=== PATIENT | female | born 1990 | race Caucasian/White ===

== ENCOUNTER → 2017-06-17 15:53 | Outpatient (CLI) | payer OTHER, SELFPAY ==
[2015-04-09 07:38] VITALS: BMI 41.8
[2015-04-10 03:10] VITALS: BP 106/76
[2015-04-12 09:00] VITALS: BP 123/71
[2017-06-17 17:21] LABS: Absolute Lymphocyte Count 1.22 X10^3/ul (0.83-4.51); Basophil# 0.01 X10^3/uL; Basophil% 0.1 % (0-1); Eosinophil# 0.11 X10^3/uL; Eosinophils% 1.2 % (0-5); Hematocrit 38.7 % (37-47); Hemoglobin 13.4 g/dl (12.0-15.0); Lymphocyte # 1.22 X10^3/ul (4.0); Lymphocyte % 13.7 % (19-41); Mean Corp Hgb Conc 34.6 g/gl (32-36); Mean Corpuscular Hgb 30.2 pg (27.0-32.0); Mean Corpuscular Volume 87.2 fL (81-99); Mean Platelet Vol. 11.1 fl (6.2-12.0); Monocyte# 0.57 X10^3/uL; Monocyte% 6.4 % (0-10); Neutrophil # 6.96 X10^3/uL (2.7-7.7); Neutrophil % 78.5 % (47-70); Platelet Count 294 K/mm3 (150-450); RBC Distribution Width CV 13.5 % (11.6-14.6); RBC Distribution Width SD 41.8 fl (35.1-43.9); Red Blood Count 4.44 M/mm3 (4.2-5.4); White Blood Count 8.9 K/mm3 (4.4-11.0)
[2017-06-17 17:22] LABS: POSITIVE COUNT NO; POSITIVE DIFFERENTIAL NO; POSITIVE MORPHOLOGY NO
[2017-06-17 17:35] LABS: Color, Urine Yellow (Yellow); Glucose, Dipstick Normal (Normal); Ketone-Dipstick Negative (Negative); Leukocyte Esterase-Dipstick 100 /ul (Negative); Nitrite-Dipstick Negative (Negative); Occult Blood-Urine 10 /ul (Negative); Protein-Dipstick Negative (Negative); Urine Bilirubin Dipstick Negative (Negative); Urine Clarity Cloudy (Clear); Urine Urobilinogen Normal (Normal)
[2017-06-17 17:43] LABS: Amphetamine Urine VISTA NEGATIVE (<1000 ng/mL); Barbiturate Urine VISTA NEGATIVE (< 200 ng/mL); Benzodiazepine Urine VISTA NEGATIVE (< 200 ng/mL); Cocaine Urine VISTA NEGATIVE (< 300 ng/mL); Ecstacy Urine VISTA NEGATIVE (< 500 ng/mL); Methadone Urine VISTA NEGATIVE (< 300 ng/mL); PCP Urine VISTA NEGATIVE (< 25 ng/mL); THC Urine VISTA NEGATIVE (< 50 ng/mL); Vista UDS pH Range 5
[2017-06-17 17:54] LABS: Free T3 2.7 pg/mL (2.18-3.98); T4 Free Direct 1.14 ng/dL (0.76-1.46); Thyroid Stim Hormone (TSH) 0.84 uIU/mL (0.358-3.74)
[2017-06-17 18:05] LABS: COTININE Drug Screen Negative (<200 ng/mL)
[2017-06-17 18:26] LABS: HIV - WCH Non-Reactive (Nonreactive); Rubella IgG 225.4 IU/mL
[2017-06-19 08:32] LABS: HEPATITIS B SURFACE AG Negative (Negative); Hep C Antibodies 0.2 s/co ratio (0.0-0.9)
[2017-06-24 11:45] LABS: Prenatal RPR NONREACTIVE (NONREACTIVE)
== END ==
PROVIDERS: Visit Provider Obstetrics & Gynecology
DX: Z34.81 Encounter for supervision of other normal pregnancy, first trimester (principal)
CPT/HCPCS: 36415; 80307; 81002; 84439; 84443; 84481; 85025; 86703; 86762; 86803; 87340

== ENCOUNTER → 2017-10-12 09:06 | Outpatient (CLI) | payer OTHER, SELFPAY ==
--- NOTE | 2017-10-12 09:06 | DT_ITS ---
This patient was seen during an EMR downtime October 10, 2017 - October 17, 2017. This patient may have a combination of paper and electronic documentation or all paper documentation. All documentation is viewable within the e-chart portion of [facility] for each patient visit.
[2017-10-16 10:05] LABS: Glucose Challenge Gest 1H 50g 111 mg/dL (70-140)
[2017-10-16 10:17] LABS: Hematocrit 36.8 % (37-47); Hemoglobin 12.4 g/dl (12.0-15.0); Mean Corp Hgb Conc 33.7 g/gl (32-36); Mean Corpuscular Hgb 30.2 pg (27.0-32.0); Mean Corpuscular Volume 89.5 fL (81-99); Mean Platelet Vol. 10.7 fl (6.2-12.0); Platelet Count 260 K/mm3 (150-450); RBC Distribution Width CV 13.4 % (11.6-14.6); Red Blood Count 4.11 M/mm3 (4.2-5.4)
[2017-10-16 10:18] LABS: Scan Indicated on CBC? Y/N NO
== END ==
PROVIDERS: Visit Provider Obstetrics & Gynecology
DX: Z34.82 Encounter for supervision of other normal pregnancy, second trimester (principal)
CPT/HCPCS: 36415; 82950; 85027

== ENCOUNTER → 2017-12-07 15:39 | Outpatient (CLI) | payer OTHER, SELFPAY ==
[2017-12-07 18:40] LABS: Group B Strep DNA By PCR Negative (Negative); Internal Control PASS; Probe Check PASS; Specimen Processing Control PASS
== END ==
PROVIDERS: Visit Provider Obstetrics & Gynecology
DX: Z36.85 Encounter for antenatal screening for Streptococcus B (principal)
CPT/HCPCS: 87081; 87653

== ENCOUNTER 2017-12-29 05:12 | Inpatient (IN) | payer OTHER, SELFPAY ==
[2017-12-29] VITALS (22 sets, daily range): BP systolic 108–139; BP diastolic 49–88; PULSE 62–83; RESP 14–20; TEMP 36.2–36.9; O2SAT 95–99; BMI 41.1
[2017-12-29] MEDS: Lactated Ringers 1,000 ML 999 ML IV (05:25)
[2017-12-29 06:10] LABS: Absolute Lymphocyte Count 1.38 X10^3/ul (0.83-4.51); Absolute Neutrophil Count 7.5 X10^3/uL (2.0-7.7); Basophil# 0.01 X10^3/uL; Basophil% 0.1 % (0-1); Eosinophil# 0.07 X10^3/uL; Eosinophils% 0.7 % (0-5); Hematocrit 35.3 % (37-47); Hemoglobin 11.5 g/dl (12.0-15.0); Lymphocyte # 1.38 X10^3/ul (4.0); Lymphocyte % 13.6 % (19-41); Mean Corp Hgb Conc 32.6 g/gl (32-36); Mean Corpuscular Hgb 27.3 pg (27.0-32.0); Mean Corpuscular Volume 83.8 fL (81-99); Mean Platelet Vol. 10.9 fl (6.2-12.0); Monocyte% 10.9 % (0-10); Neutrophil # 7.53 X10^3/uL (2.7-7.7); Neutrophil % 74.4 % (47-70); Platelet Count 285 K/mm3 (150-450); RBC Distribution Width SD 41.9 fl (35.1-43.9); Red Blood Count 4.21 M/mm3 (4.2-5.4); White Blood Count 10.1 K/mm3 (4.4-11.0)
[2017-12-29 06:20] LABS: POSITIVE COUNT NO; POSITIVE DIFFERENTIAL NO; POSITIVE MORPHOLOGY NO
[2017-12-29 06:21] LABS: Partial Thromboplast Time 26.9 Seconds (24.1-36.2); Prothrombin Time (Protime)PT. 12.7 SECONDS (11.7-14.9)
[2017-12-29] MEDS: Lactated Ringers 1,000 ML 150 ML IV (06:40)
[2017-12-29] MEDS: Sodium Citrate/Citric Acid 30 ML UDC PO (06:48)
[2017-12-29] MEDS: Lactated Ringers 1,000 ML 100 ML IV ×3 (07:00→20:57)
--- NOTE | 2017-12-29 07:16 | PCM.DCCSEC ---
Discharge Diet: No Restrictions Discharge Activity: Return to Normal Activity, May Not Drive, May not drive while taking narcotic pain medications., May Shower Return to work on:: 02/27/18 May shower in (days): 0 May resume sexual activity in: 4-6 weeks Call your doctor if your incision/area has: Sudden Increased Bleeding, Increased Pain/ Swelling, Increased Redness, Foul Smelling Discharge, Swelling at the incision site Call your doctor if you observe: Fever of 101 or Higher, Inability to urinate, Inability to have a bowel movement, Using more than one pad per hour, Shortness of breath, Chest pain, Calf discomfort, Uncontrolled pain Remove Dressing in (days):: 3 Cleanse incision/area with: Soap & Water Additional Instructions: If you experience any of the following, contact your healthcare provider. Bleeding that soaks a pad every hour for 2 hours Fever 100.4 or higher Unrelieved incision or abdominal pain Swelling, redness, discharge or bleeding from your incision or episiotomy site Your incision begins to separate Problems urinating (including inability to urinate or burning while urinating). Visual changes Severe headache Flu-like symptoms Pain or redness in one of both of your breasts Pain, warmth, tenderness or swelling in your legs, especially the calf area Frequent nausea and vomiting Symptoms of depression or anxiety If you experience any of the following, call 911 or go to the nearest Emergency Room. Chest pain Problems breathing Seizure activity Partial or complete paralysis of a body part, slurred speech, weakness or drooping of the face, or a sudden inability to walk or hold your balance Allergies/Adverse Reactions: Allergies Penicillins Allergy (Verified 12/29/17 05:22) Hives Medications to take at Discharge Ibuprofen 600 mg PO 4X/DAY #30 tab 12/29/17 Oxycodone [Oxyir] 5 mg PO Q4H PRN PRN 7 Days #28 tab 12/29/17 Vits [Prenatabs FA ] 1 tablet PO DAILY 12/29/17 The following prescriptions were given: Oxycodone [Oxyir] 5 mg PO Q4H PRN PRN 7 Days #28 tab PRN Reason: Mod-Severe Pain (-02/15) Ibuprofen 600 mg PO 4X/DAY #30 tab Follow-Up: Call to make an appointment with your doctor for an incision check in 1-2 weeks. You will also need a 6 week post- follow up appointment. Test results from this visit will be discussed in further detail at your follow-up appointment, if applicable. Please Follow Up With: Leon Ann MD When: one week Primary Care Physician: Rusty Roy MD [Primary Care Provider] - Proposed Discharge Date: 12/31/17
--- NOTE | 2017-12-29 07:17 | PCM.OPRPT ---
Problem List (1) Previous delivery affecting , delivered Status: Chronic Report of Operation Date of Procedure: 12/29/17 Pre-Operative Diagnosis: Previous Section Post-Operative Diagnosis: Same Surgery/Procedure Performed:: Repeat Low Transverse Section Description of Surgical Findings:: Live female in vertex presentation weighing 9lb4.5oz. Apgaars 8/9. Amniotic fluid clear. Normal appearing uterus, ovaries, and fallopian tubes. fuse assembler: Anupam Mark Type of Anesthesia:: Spinal Anesthesiologist: Kuldeep Mancilla Special Medications: none Specimen's removed: none Drains: barrera Estimated Blood Loss (mL): 600cc Fluids Replaced: 1500cc LR Description of Procedure: Bev was taken to the OR with IV running. She was given IV antibiotics intravenously prior to the surgery for prophylaxis. SCDs were in place and operational throughout the case. Spinal anesthesia was introduced without complication. A barrera catheter was then placed. She was the prepped and draped in the supine position with a leftward tilt. Anesthesia was checked and found to be adequate. A Pfannensteil incision was then made through the previous scar. The underlying subcutaneous tissue was dissected down to the level of fascia with sharp and blunt dissection. The fascia was then incised laterally in the midline and this incision was extended bilaterally with the Lemon scissors. The rectus muscles were then dissected off the upper and lower portion of the fascial defect using blunt and sharp dissection. The rectus muscles were then in the midline the peritoneum iodentified and entered sharply. The peritoneal defect was then enlarged using blunt dissection. A bladder blade was placed. A bladder flap was then created using blunt and sharp dissection. The bladder blade was then replaced. The lower uterine segment was then incised in a transverse fashion. Once the cavity was entered the uterine defect was enlarged using blunt lateral and superior traction. The baby was then delivered with the assist of a Kiwi vacuum device. After delivery the nose and mouth were suctioned with a bulb suction. Delayed cord clamping was employed. The cord was then clamped and cut and the baby handed off to the waiting nursing staff for initial evaluation. The placenta was delivered manually, the uterus exteriorized, and cleared of all clot and membranes. The uterine defect was repaired in two layers with #1 Vicryl. The posterior cul de sac was cleared of all clot and fluid. The uterus was returned to the abdomen. The uterine defect was reinspected and found to be hemostatic. The peritoneum was the closed with 2-0 Vicryl. The rectus muscles were reapproximated with 0-Vicryl suture. The fascia was closed with a running stitch of #1 Stratofix suture. The subcutaneous tissue was closed with a subcuticular stitch of 4-0 MOnocryl. SPonge, lap, needle, and instrument counts were correct. SHe was taken to her recovery room in stable condition. Grafts/Implants Used: none - Complications none - Admit VTE Documentation VTE Present on Admission: No VTE Mechan Device Prophylaxis: SCD's VTE Pharm Prophylaxis ordered?: No
[2017-12-29] MEDS: Oxytocin 30 units/NS 500 ml 30 UNITS/500 ML IV.SOLN 167 UNITS IV (07:44)
[2017-12-29] MEDS: Ketorolac 30 MG/ML Syringe IV ×2 (14:22→18:05)
[2017-12-30] VITALS (8 sets, daily range): BP systolic 119–134; BP diastolic 62–87; PULSE 63–99; RESP 16–18; TEMP 36.2–36.9; O2SAT 94–97
[2017-12-30] MEDS: Ketorolac 30 MG/ML Syringe IV ×4 (00:53→17:49)
[2017-12-30 05:49] LABS: Hematocrit 30.9 % (37-47); Hemoglobin 9.8 g/dl (12.0-15.0); Mean Corp Hgb Conc 31.7 g/gl (32-36); Mean Corpuscular Hgb 26.9 pg (27.0-32.0); Mean Corpuscular Volume 84.9 fL (81-99); Mean Platelet Vol. 10.5 fl (6.2-12.0); Platelet Count 208 K/mm3 (150-450); RBC Distribution Width CV 14.2 % (11.6-14.6); RBC Distribution Width SD 44.3 fl (35.1-43.9); Red Blood Count 3.64 M/mm3 (4.2-5.4); White Blood Count 7.5 K/mm3 (4.4-11.0)
[2017-12-30 05:52] LABS: Scan Indicated on CBC? Y/N NO
[2017-12-30] MEDS: oxyCODONE 5 MG Tablet PO (08:34)
[2017-12-30] MEDS: 0.9% Saline Lock 10 ML Syringe IV ×3 (08:36→17:49)
--- NOTE | 2017-12-30 08:40 | PCM.PN.OB ---
Subjective: Patient without complaints. Tolerating diet well. Denies flatus. Breast-feeding going well. - Physical Exam Vital Signs AF, VSS Temp Pulse Resp BP Pulse Ox 97.5 F L 79 16 126/87 H 94 12/30/17 04:55 12/30/17 07:00 12/30/17 07:00 12/30/17 04:55 12/30/17 07:00 Oxygen Delivery Method Room Air Weight: 231 lb 14.821 oz Body Mass Index (BMI) 41.1 Intake and Output for Last 24 Hours 12/28/17 12/29/17 12/30/17 23:59 23:59 23:59 Intake Total 3117 / 3117 1999 / 1999 Output Total 1300 / 1300 1800 / 1800 Balance 1817 / 1817 200 / 200 Laboratory Tests Past 24 Hrs 12/30/17 05:15 WBC 7.5 RBC 3.64 L Hgb 9.8 L Hct 30.9 L MCV 84.9 MCH 26.9 L MCHC 31.7 L RDW 14.2 RDW Differential 44.3 H Plt Count 208 MPV 10.5 Wound is clean, dry, intact without apparent seepage. Hemoglobin okay. Good urine output. Medical Necessity - Tobacco Use Smoking Status: Never smoker Assessment/Plan All Active Problems Arrest of dilation, delivered, current hospitalization (Acute) Doing well postoperative day #1 status post . Continuing present care.
[2017-12-30] MEDS: Prenatal Vits Tablet 1 TABLET PO (10:23)
[2017-12-30] MEDS: Senna/Docusate Sodium 1 Tablet PO (10:26)
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
[2017-12-31] MEDS: Ketorolac 30 MG/ML Syringe IV ×2 (00:41→06:05)
[2017-12-31 02:00] VITALS: BP 117/65; PULSE 75; RESP 18; TEMP 36.2
[2017-12-31] MEDS: 0.9% Saline Lock 10 ML Syringe IV ×2 (06:05)
[2017-12-31 08:00] VITALS: BP 127/80; PULSE 80; RESP 18; TEMP 36.2
--- NOTE | 2017-12-31 09:34 | PCM.PN.OB ---
Subjective: Patient without complaints. Tolerating diet well. Positive flatus. Pain well controlled. Wants to go home later today. - Physical Exam Vital Signs Temp Pulse Resp BP Pulse Ox 97.2 F L 75 18 117/65 97 12/31/17 02:00 12/31/17 02:00 12/31/17 02:00 12/31/17 02:00 12/30/17 21:00 Oxygen Delivery Method Room Air Weight: 231 lb 14.821 oz Body Mass Index (BMI) 41.1 Intake and Output for Last 24 Hours 12/29/17 12/30/17 12/31/17 23:59 23:59 23:59 Intake Total 3117 / 3117 2958 / 2958 Output Total 1300 / 1300 4250 / 4250 Balance 1817 / 1817 -1292 / -1292 Medical Necessity - Tobacco Use Smoking Status: Never smoker Assessment/Plan All Active Problems Arrest of dilation, delivered, current hospitalization (Acute) Doing well postoperative day #2 status post section. Will release to home with routine instructions.
[2017-12-31] MEDS: Senna/Docusate Sodium 1 Tablet PO (11:53)
[2017-12-31] MEDS: Ibuprofen 600 MG Tablet PO (11:54)
[2017-12-31] MEDS: Prenatal Vits Tablet 1 TABLET PO (11:54)
[2017-12-31 14:00] VITALS: BP 124/60; PULSE 88; RESP 18; TEMP 36.1
== END 2017-12-31 14:00 | disposition home or self-care (01) | DRG 766 ==
PROVIDERS: Admitting Provider Obstetrics & Gynecology; Family Provider Family Medicine; PCP Family Medicine; Visit Provider Obstetrics & Gynecology
PROC: 10D00Z1 Extraction of Products of Conception, Low, Open Approach (ICD-10-PCS; CPT 59514; principal; 2017-12-29 07:15)
DX: O34.211 Maternal care for low transverse scar from previous cesarean delivery (principal); M41.9 Scoliosis, unspecified; Z37.0 Single live birth; Z3A.39 39 weeks gestation of pregnancy
CPT/HCPCS: 85025; 85027; 85610; 85730; 86850; 86900; 94762; 99218; J7120; A4216; G0378

== ENCOUNTER → 2018-02-03 13:42 | Outpatient (CLI) | payer OTHER, SELFPAY ==
[2018-02-03 17:32] LABS: Progesterone Level 0.19 ng/mL (See Comment)
== END ==
PROVIDERS: Visit Provider Obstetrics & Gynecology
DX: Z30.9 Encounter for contraceptive management, unspecified (principal)
CPT/HCPCS: 36415; 84144

== ENCOUNTER → 2018-02-08 18:55 | Outpatient (CLI) | payer OTHER, SELFPAY ==
[2018-02-08 21:21] LABS: Chlamydia Trachomatis by PCR Negative (Negative); Neisserai gonorrhoeae by PCR Negative (Negative); Probe Check PASS; Sample Adequacy Control PASS; Specimen Processing Control PASS
== END ==
PROVIDERS: Visit Provider Obstetrics & Gynecology
DX: Z11.3 Encounter for screening for infections with a predominantly sexual mode of transmission (principal)
CPT/HCPCS: 87491; 87591

== ENCOUNTER → 2018-07-13 15:14 | Outpatient (CLI) | payer OTHER, SELFPAY ==
[2018-07-18 11:07] LABS: HPV Reflexed? NOT INDICATED
== END ==
PROVIDERS: Referring Provider Obstetrics & Gynecology; Visit Provider Obstetrics & Gynecology
DX: Z12.4 Encounter for screening for malignant neoplasm of cervix (principal)
CPT/HCPCS: 88175; G0145

== ENCOUNTER → 2022-06-04 | Outpatient (CLI) | payer OTHER, SELFPAY ==
--- NOTE | 2022-06-04 12:40 | RAD_ITS ---
STUDY: X-RAY - RIGHT ANKLE REASON FOR EXAM: Female, 32 years old. Fall on ice 2 days ago. TECHNIQUE: 3 view(s) of the ankle. COMPARISON: None. FINDINGS: Normal visualized distal tibia and fibula. Normal medial and lateral malleoli. Normal tibiotalar articulation and ankle mortise. Superior and inferior calcaneal spurs. The visualized subtalar, talonavicular, calcaneocuboid and tarsal articulations are normal. The soft tissue structures are unremarkable. RAD/Ankle min 3 Views IMPRESSION: Calcaneal Spurs. No other abnormality. Electronically Signed: Jim Lea, at 13:16 EST ,
== END | disposition home or self-care (01) ==
LOC: MTRAD 12:38
PROVIDERS: PCP Family Medicine; Referring Provider Family Medicine; Visit Provider Family Medicine
DX: M77.31 Calcaneal spur, right foot (principal); M25.571 Pain in right ankle and joints of right foot
CPT/HCPCS: 73610

== ENCOUNTER → 2023-08-18 | Outpatient (CLI) | payer OTHER, SELFPAY ==
[2023-08-18 17:52] LABS: Absolute Lymphocyte Count 1.48 X10^3/uL (0.83-4.51); Basophil# 0.02 X10^3/uL; Basophil% 0.2 % (0-1); Eosinophil# 0.17 X10^3/uL; Eosinophils% 2.1 % (0-5); Hematocrit 41.3 % (37-47); Hemoglobin 13.8 g/dL (12.0-15.0); Lymphocyte # 1.48 X10^3/ul (0.83-4.51); Lymphocyte % 17.9 % (19-41); Mean Corp Hgb Conc 33.4 g/dL (32-36); Mean Corpuscular Hgb 30.3 pg (27.0-32.0); Mean Corpuscular Volume 90.6 fL (81-99); Mean Platelet Vol. 10.6 fl (6.2-12.0); Monocyte# 0.61 X10^3/uL; Monocyte% 7.4 % (0-10); NRBC Flagged by Analyzer 0 % (0-5); Neutrophil # 5.97 X10^3/uL (2.7-7.7); Neutrophil % 71.9 % (47-70); Platelet Count 359 K/mm3 (150-450); RBC Distribution Width CV 12.9 % (11.6-14.6); RBC Distribution Width SD 42.6 fl (35.1-43.9); Red Blood Count 4.56 M/mm3 (4.2-5.4); White Blood Count 8.3 K/mm3 (4.4-11.0)
[2023-08-18 18:47] LABS: Anion Gap 4 (5-15); BUN 16 mg/dL (7-18); BUN/Creat Ratio 21.5 RATIO (10-20); Chloride 106 mmol/L (98-107); Creatinine, Serum 0.74 mg/dL (0.55-1.02); EST Glomerular Filtration Rate 95 mL/min (>60); Est Glom Filt Rate - Afr Amer 115 mL/min (>60); Free T3 2.7 pg/mL (2.18-3.98); Glucose 95 mg/dL (74-106); Potassium 3.6 mmol/L (3.5-5.1); Sodium Level 137 mmol/L (136-145); Thyroid Stim Hormone (TSH) 2.33 uIU/mL (0.358-3.74)
== END | disposition home or self-care (01) ==
LOC: MFPLAB 15:28
PROVIDERS: PCP Family Medicine; Visit Provider Family Medicine
DX: D64.9 Anemia, unspecified (principal); R63.5 Abnormal weight gain
CPT/HCPCS: 36415; 80048; 84439; 84443; 84481; 85025

== ENCOUNTER → 2023-11-30 | Outpatient (CLI) | payer OTHER, SELFPAY ==
[2023-12-07 12:10] LABS: HPV APTIMA, High Risk Negative (Negative)
== END | disposition home or self-care (01) ==
LOC: LABSPEC 16:08
PROVIDERS: PCP Family Medicine; Referring Provider Nurse Practitioner Women's Health; Visit Provider Nurse Practitioner Women's Health
DX: Z12.4 Encounter for screening for malignant neoplasm of cervix (principal)
CPT/HCPCS: 87624; 88175; G0145

== ENCOUNTER → 2024-07-09 | Outpatient (CLI) | payer BC, SELFPAY ==
[2024-07-09 18:00] LABS: Absolute Lymphocyte Count 1.39 X10^3/uL (0.83-4.51); Basophil# 0.04 X10^3/uL; Basophil% 0.4 % (0-1); Eosinophil# 0.13 X10^3/uL; Eosinophils% 1.3 % (0-5); Hematocrit 42.2 % (37-47); Lymphocyte # 1.39 X10^3/ul (0.83-4.51); Lymphocyte % 13.4 % (19-41); Mean Corp Hgb Conc 33.2 g/dL (32-36); Mean Corpuscular Volume 90.4 fL (81-99); Mean Platelet Vol. 10.3 fl (6.2-12.0); Monocyte# 0.82 X10^3/uL; Monocyte% 7.9 % (0-10); NRBC Flagged by Analyzer 0 % (0-5); Neutrophil # 7.96 X10^3/uL (2.7-7.7); Neutrophil % 76.5 % (47-70); Platelet Count 375 K/mm3 (150-450); RBC Distribution Width CV 12.9 % (11.6-14.6); RBC Distribution Width SD 42.6 fl (35.1-43.9); Red Blood Count 4.67 M/mm3 (4.2-5.4); White Blood Count 10.4 K/mm3 (4.4-11.0)
[2024-07-09 18:19] LABS: Erythrocyte Sedimentation Rate 16 mm/hr (0-30)
[2024-07-09 21:15] LABS: Anion Gap 13 (5-15); BUN 11 mg/dL (4-19); BUN/Creat Ratio 19.9 RATIO (10-20); Calcium 9.5 mg/dL (7.6-11.0); Carbon Dioxide 22.1 mmol/L (22.0-29.0); Chloride 102 mmol/L (96-108); Creatinine, Serum 0.56 mg/dL (0.70-1.20); EST Glomerular Filtration Rate 122 (>60); Glucose 88 mg/dL (70-99); Sodium Level 137 mmol/L (133-145)
== END | disposition home or self-care (01) ==
LOC: MFPLAB 14:56
PROVIDERS: PCP Family Medicine; Referring Provider Family Medicine; Visit Provider Family Medicine
DX: H47.091 Other disorders of optic nerve, not elsewhere classified, right eye (principal)
CPT/HCPCS: 36415; 80048; 85025; 85652; 86140

== ENCOUNTER → 2024-07-16 | Outpatient (CLI) | payer BC, SELFPAY ==
--- NOTE | 2024-07-16 17:10 | MRI_ITS ---
PROCEDURE: TECHNIQUE: Multiplanar, multi-sequence MRI of brain was performed without and with IV contrast. FINDINGS: BRAIN/PARENCHYMA: No evidence of acute infarction or acute intracranial hemorrhage. There are subcortical and periventricular white matter FLAIR hyperintensities, likely related to chronic microvascular ischemic disease. No abnormal post-contrast enhancement. EXTRA-AXIAL SPACES: No abnormal extra-axial fluid collections. Patent basal cisterns and foramen magnum. MIDLINE SHIFT: None. VENTRICLES: No hydrocephalus. SCALP SOFT TISSUES & CALVARIUM: No significant abnormality. VISUALIZED SINUSES & MASTOIDS: No air-fluid levels in the paranasal sinuses. The mastoid air cells are clear. ARTERIAL FLOW VOIDS: Preserved major arterial flow voids indicating gross patency. ORBIT: Central T2 hyperintensity along the left canalicular optic nerve (series 9, image 15). No significant enhancement is noted. Remainder of the orbit is within normal limits. No intraconal or extraconal masses noted. MRI/Brain W/WO Contrast IMPRESSION: 1. Mildly increased T2 hyperintensity involving the left canalicular optic ner ve. No significant enhancement otherwise, unremarkable MRI of the brain.. COMPARISON: None. Reading Location: [facility]
--- NOTE | 2024-07-16 17:11 | MRI_ITS ---
PROCEDURE: MRV HEAD WITHOUT CONTRAST REASON FOR EXAM: BILATERAL OPTIC NERVE EDEMA COMPARISON: None. TECHNIQUE: 2D Time of Flight MRV of the head without intravenous contrast. 3D reformatted images. FINDINGS: No evidence of dural venous sinus thrombosis. Superior sagittal sinus, transverse sinus, straight sinus, vein of Eh, sigmoid sinus and imaged internal jugular veins are within normal limits. No significant stenosis. MRI/MRV Head Without Contrast IMPRESSION: No evidence of dural venous stenosis or thrombosis. [facility]
== END | disposition home or self-care (01) ==
LOC: MRI 17:03
PROVIDERS: PCP Family Medicine; Referring Provider Ophthalmology; Visit Provider Ophthalmology
DX: H47.091 Other disorders of optic nerve, not elsewhere classified, right eye (principal); H47.092 Other disorders of optic nerve, not elsewhere classified, left eye
CPT/HCPCS: 70544; 70553; A9575

== ENCOUNTER → 2024-07-24 | Outpatient (CLI) | payer BC, SELFPAY ==
[2024-07-24 13:03] LABS: Absolute Lymphocyte Count 1.25 X10^3/uL (0.83-4.51); Absolute Neutrophil Count 6.3 X10^3/uL (2.0-7.7); Basophil# 0.03 X10^3/uL; Basophil% 0.4 % (0-1); Eosinophil# 0.15 X10^3/uL; Eosinophils% 1.8 % (0-5); Hematocrit 40.3 % (37-47); Hemoglobin 13.7 g/dL (12.0-15.0); Lymphocyte # 1.25 X10^3/ul (0.83-4.51); Lymphocyte % 14.7 % (19-41); Mean Corpuscular Hgb 30.4 pg (27.0-32.0); Mean Corpuscular Volume 89.4 fL (81-99); Mean Platelet Vol. 9.9 fl (6.2-12.0); Monocyte# 0.74 X10^3/uL; Monocyte% 8.7 % (0-10); NRBC Flagged by Analyzer 0 % (0-5); Neutrophil # 6.28 X10^3/uL (2.7-7.7); Neutrophil % 73.9 % (47-70); Platelet Count 338 K/mm3 (150-450); RBC Distribution Width CV 12.9 % (11.6-14.6); RBC Distribution Width SD 42.3 fl (35.1-43.9); Red Blood Count 4.51 M/mm3 (4.2-5.4); White Blood Count 8.5 K/mm3 (4.4-11.0)
[2024-07-24 13:15] VITALS: BP 156/91; PULSE 94; RESP 16; TEMP 36.9; O2SAT 99
[2024-07-24 13:16] VITALS: BP 156/91; PULSE 94; RESP 16; O2SAT 99; BMI 40.1
[2024-07-24 13:18] LABS: Partial Thromboplast Time 30.9 Seconds (24.1-36.2)
[2024-07-24 13:21] LABS: Prothrombin Time (Protime)PT. 13.1 SECONDS (11.7-14.9)
--- NOTE | 2024-07-24 13:30 | RAD_ITS ---
PROCEDURE: DX LUMBAR PUNCTURE W/IMG GUIDE 07/24/2024 REASON FOR EXAM: UNSPECIFIED PAPILLEDEMA, ENCOUNTER FOR OTHER PREPROCEDURAL EXAMIN TECHNIQUE: The procedure as well the benefits and possible complications including infection headaches were explained to the patient. Informed consent was obtained. The patient was in the prone position. The overlying skin was prepped and draped in the usual sterile fashion. Following local anesthetic application and under direct fluoroscopic guidance, a lumbar puncture was performed at the L2-L3 level. Free flow of CSF was detected. The opening pressure was 13 mm. 12 cc of clear CSF fluid was collected and sent to the laboratory for analysis as per request. COMPARISON: None FINDINGS: Successful lumbar puncture at the L2-L3 level. RAD/Dx Lumbar Puncture w/IMG Guide IMPRESSION: Successful lumbar puncture at the L2-L3 level without any immediate complicatio ns. The patient tolerated the procedure well. Reading Location: [place] [id number]
[2024-07-24] MEDS: Lidocaine 2% (5ml sdv) 5 ML VIAL.MPF INFILT (14:02)
[2024-07-24 14:20] VITALS: BP 124/88; PULSE 76; RESP 16; O2SAT 98
[2024-07-24 14:30] LABS: Pathologist Review May follow
[2024-07-24 14:54] VITALS: BP 118/79; PULSE 74; RESP 16; O2SAT 99
[2024-07-24 14:56] LABS: Appearance CSF (character) CLEAR (Clear); CSF Color COLORLESS (Colorless); Tested Tube # 4
[2024-07-24 15:36] LABS: RBC Count, Spinal Fluid 0 /mm-3 (None seen); White Count, CSF 0 /mm-3 (0 - 5)
[2024-07-24 16:05] LABS: Body Fluid QC Type(s) BF1Q; Monocytes,CSF 100 % (15 - 45)
== END | disposition home or self-care (01) ==
PROVIDERS: Radiology Diagnostic Radiology; PCP Family Medicine; Referring Provider Ophthalmology; Visit Provider Ophthalmology
DX: Z01.818 Encounter for other preprocedural examination (principal); H47.10 Unspecified papilledema
CPT/HCPCS: 36415; 62328; 85025; 85610; 85730; 87070; 87205; 89050; 89051

== ENCOUNTER → 2025-02-04 | Outpatient (CLI) | payer BC, SELFPAY ==
[2025-02-04 18:30] LABS: AST(SGOT) 16 U/L (<=31); Alanine Aminotransfer ALT/SGPT 15 U/L (<=34); Albumin, Serum 4.2 g/dL (3.5-5.0); Alkaline Phosphatase 60 U/L (35-104); Anion Gap 12 (5-15); BUN 11 mg/dL (4-19); BUN/Creat Ratio 21.0 RATIO (10-20); Calcium,Total 8.9 mg/dL (7.6-11.0); Carbon Dioxide 22.2 mmol/L (21.0-32.0); Chloride 105 mmol/L (98-108); Globulin 2.6 g/dL (2.2-4.2); Glucose 108 mg/dL (70-99); Potassium 3.9 mmol/L (3.3-5.1)
== END | disposition home or self-care (01) ==
LOC: MFPLAB 14:57
PROVIDERS: PCP Family Medicine; Visit Provider Family Medicine
DX: L65.9 Nonscarring hair loss, unspecified (principal)
CPT/HCPCS: 36415; 80053; 84443

== ENCOUNTER → 2025-03-15 | Outpatient (CLI) | payer BC, SELFPAY ==
[2025-03-15 18:17] LABS: Ferritin 181 ng/mL (22-378); Free T3 3.2 pg/mL (2.18-3.98); Vitamin D,25 Hydroxy 20.6 ng/mL (30-100)
[2025-03-20 13:08] LABS: Zinc, Plasma or Serum 65 ug/dL (44-115)
== END | disposition home or self-care (01) ==
LOC: MFPLAB 13:56
PROVIDERS: PCP Family Medicine; Visit Provider Physician Assistant
DX: L65.9 Nonscarring hair loss, unspecified (principal); E66.9 Obesity, unspecified; E28.2 Polycystic ovarian syndrome; F43.0 Acute stress reaction
CPT/HCPCS: 36415; 82306; 82627; 82728; 84481; 84630; 86038; 86376; 82626

== ENCOUNTER → 2025-04-25 | Outpatient (CLI) | payer BC, SELFPAY ==
--- OUTSIDE RECORDS SUMMARY | 2025-04-25 11:50 | XMS RPT_ITS | CCD ---
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 Davalos Primary Care Provider Michael BLANK, Dr. Davalos Attending Provider [phone] Michael BLANK, Dr. Davalos Referring Provider Shelly BLANK, Dr. Lu Attending Provider Shelly BLANK, Dr. Lu Referring Provider Dashawn BLANK, Dr. Alvarez Other Provider Unava valarie Rodriguez MD, Dr. Davalos Primary Care Physician [phone] Michael BLANK, Dr. Davalos Attending Physician Anoop Rodriguez Primary Care Unavailable Anoop Rodriguez Attending Unavailable Rodriguez, Anoop Primary Care Unavailable Leslye Valencia Attending Unavailable Rodriguez, Anoop Primary Care Unavailable Leslye Valencia Attending Unavailable Anoop Rodriguez Referring Unavailable Michael, Anoop Primary Care Unavailable Anoop Rodriguez Attending Unavailable Michael, Anoop Primary Care Unavailable Aly Bravo Attending Unavailable Aly Bravo Referring Unavailable Michael, Anoop Primary Care Unavailable Aly Bravo Attending Unavailable Aly Bravo Referring Unavailable Antonio Tamez Consulting Unavailable Anoop Rodriguez Referring Unavailable Rodriguez, Anoop Primary Care Unavailable Anoop Rodriguez Attending Unavailable Allergies Allergy Classification Reported Allergen(s) Allergy Type Date of Onset Reaction(s) Facility (6 sources) Penicillins Allergy to substance 04-25-[address] [facility] (4 sources) Amoxicillin Drug Allergy 11-30-2023 Other [facility] Comment on above: Blisters on skin (1 source) Amoxicillin Drug Allergy 07-24-2024 [facility] Repository (1 source) Penicillins Drug allergy (disorder) 07-24-2024 [facility] Repository Medications Current Medications Medication Drug Class(es) Dates Sig (Normalized) Sig (Original) fluconazole 150 mg oral tablet (4 sources) Azole Antifungal Start: 12-12-2023 ibuprofen 200 mg oral tablet (9 sources) Nonsteroidal Anti-inflammatory Drug Start: 07-24-2024 take 3 tablets by mouth every eight hours Start: 12-29-2017 End: 04-25-2022 take 1 tablet by mouth four times daily Ibuprofen 600 MG tablet Discontinued 600 mg PO 4 TIMES DAILY 07 06December 29, 2017 12:00am April 25, 2022 10:27am pain or cramping levonorgestrel 0.681153 mg/h r intrauterine system (4 sources) Progestin, Progestin-containing Intrauterine Device Start: 11-30-2023 Completed/Discontinued Medications Medication Drug Class(es) Dates Sig (Normalized) Sig (Original) [id number] 200 actuat albuterol 0.09 mg/actuat metered dose inhaler (6 sources) beta2-Adrenergic Agonist Start: 04-25-2022 End: 08-31-2022 Albuterol Sulfate 90 mcg/actuation HFA aerosol inhaler Discontinued 2 NMA INHALATION EVERY 6 HOURS as needed for shortness of breath or wheezing 8.5 0 April 25, 2022 1:00am August 31, 2022 2:17pm Acute bronchospasm Acute bronchospasm Start: 04-25-2022 End: 08-31-2022 take 1 puff(s) by inhalation every six hours Albuterol Sulfate Discontinued 2 PUFF INHALATION EVERY 6 HOURS 8.5 April 25, 2022 1:00am August 31, 2022 2:17pm azithromycin 250 mg oral tablet (6 sources) Macrolide Antimicrobial Start: 04-25-2022 End: 04-30-2022 take 1 tablet by mouth once Azithromycin 250 mg tablet Discontinued 250 mg PO ONCE 5 5 0 April 25, 2022 1:00am April 29, 2022 1:00am April 30, 2022 1:04am Acute bronchitis Acute bronchitis, unspecified Acute bronchitis oxyCODONE hydrochloride 5 mg oral tablet (6 sources) Opioid Agonist Start: 12-29-2017 End: 04-25-2022 take 1 tablet by mouth every four hours as needed for pain Oxycodone 5 MG tablet Discontinued 5 mg PO EVERY 4 HOURS NEEDED as needed for Mod-Severe Pain (4-10/10) 28 7 0 December 29, 2017 12:00am April 25, 2022 10:26am Postoperative pain Other acute postprocedural pain Vit,Anil 39-Jonk-Zcksm (Prenatabs Fa) 1 TABLET tablet (3 sources) Start: 12-29-2017 End: 04-25-2022 take 1 tablet by mouth once daily Vit,Anil 28-Iodo-Tfmvb (Prenatabs Fa) 1 TABLET tablet Discontinued 1 {tbl} PO DAILY December 29, 2017 5:25am April 25, 2022 10:26am Start: 04-09-2015 End: 12-29-2017 take 1 tablet by mouth once daily Vit,Anil 58-Guog-Ocafo (Prenatabs Fa) 1 TABLET tablet Discontinued 1 {tbl} PO DAILY 30 6 April 09, 2015 10:18pm December 29, 2017 5:25am Start: 04-09-2015 End: 04-09-2015 take 1 tablet by mouth once daily Vit,Anil 44-Pfep-Nkuek (Prenatabs Fa) 1 TABLET tablet Discontinued 1 {tbl} PO DAILY April 09, 2015 1:00am April 09, 2015 10:18pm Vit,Auzc05-Afmb-Owknl (Prenatabs Fa) 1 TABLET tablet (15 sources) Start: 12-29-2017 End: 04-25-2022 take 1 tablet by mouth once daily Vit,Xzmp74-Xihj-Sptvz (Prenatabs Fa) 1 TABLET tablet Discontinued 1 {tbl} PO DAILY December 29, 2017 5:25am April 25, 2022 10:26am Start: 12-29-2017 End: 04-25-2022 take 1 tablet by mouth once daily Vit,Vfvr09-Hpaa-Yznoa (Prenatab s Fa) 1 TABLET tablet Discontinued 1 TABLET PO DAILY December 29, 2017 5:25am April 25, 2022 10:26am Start: 12-29-2017 End: 04-25-2022 take 1 tablet by mouth once daily Vit,Fsuw04-Tftj-Iepim (Prenatab s Fa) 1 TABLET tablet Discontinued 1 TABLET PO DAILY December 29, 2017 4:25am April 25, 2022 9:26am Start: 04-09-2015 End: 12-29-2017 take 1 tablet by mouth once daily Vit,Oymy27-Nvgk-Nizmn (Prenatab s Fa) 1 TABLET tablet Discontinued 1 {tbl} PO DAILY April 09, 2015 10:18pm December 29, 2017 5:25am Start: 04-09-2015 End: 12-29-2017 take 1 tablet by mouth once daily Vit,Ugdm05-Ollq-Ophnm (Prenatab s Fa) 1 TABLET tablet Discontinued 1 TABLET PO DAILY April 09, 2015 10:18pm December 29, 2017 5:25am Start: 04-09-2015 End: 12-29-2017 take 1 tablet by mouth once daily Vit,Zulb95-Nrev-Qujsp (Prenatab s Fa) 1 TABLET tablet Discontinued 1 TABLET PO DAILY April 09, 2015 9:18pm December 29, 2017 4:25am Start: 04-09-2015 End: 04-09-2015 take 1 tablet by mouth once daily Vit,Fcgo38-Dqje-Zmsra (Prenatab s Fa) 1 TABLET tablet Discontinued 1 {tbl} PO DAILY April 09, 2015 1:00am April 09, 2015 10:18pm Start: 04-09-2015 End: 04-09-2015 take 1 tablet by mouth once daily Vit,Mpsq89-Ttla-Ukpnc (Prenatab s Fa) 1 TABLET tablet Discontinued 1 TABLET PO DAILY April 09, 2015 1:00am April 09, 2015 10:18pm Start: 04-09-2015 End: 04-09-2015 take 1 tablet by mouth once daily Vit,Ghsv34-Oedd-Lcpnz (Prenatab s Fa) 1 TABLET tablet Discontinued 1 TABLET PO DAILY April 09, 2015 12:00am April 09, 2015 9:18pm traMADol hydrochloride 50 mg oral tablet (5 sources) Opioid Agonist Start: 08-31-2022 End: 11-30-2023 Tramadol 50 mg tablet Discontinued 50 mg PO as needed August 31, 2022 12:00am November 30, 2023 2:49pm Problems Problem Classification Problem Date Documented Date Episodic/Chronic Acute bronchitis (7 sources) Acute bronchitis; Translations: [Acute bronchitis, unspecified] 04-25-2022 Episodic Cancer of cervix (4 sources) Atypical squamous cells of undetermined significance on cervical Papanicolaou smear; Translations: [Atypical squamous cells of undetermined significance on cytologic smear of cervix (ASC-US)] 12-12-2023 Episodic Comment on above: repeat pap 1 year Contraceptive and procreative management (4 sources) Intrauterine contraceptive device in situ; Translations: [Presence of (intrauterine) contraceptive device] 11-30-2023 Episodic Comment on above: Mirena IUD 2017 distress and abnormal forces of labor (6 sources) Arrested active phase of labor; 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] 12-29-2017 Episodic Influenza (7 sources) Influenza due to Influenza A virus; Translations: [Influenza due to other identified influenza virus with other respiratory manifestations] 04-25-2022 Episodic Other connective tissue disease (4 sources) Dupuytren's contracture; Translations: [Palmar fascial fibromatosis [Dupuytren]] 08-31-2022 Episodic Other connective tissue disease (1 source) Dupuytren contracture of left palm; Translations: [Palmar fascial fibromatosis [Dupuytren]] 08-31-2022 Episodic Other eye disorders (2 sources) Other disorders of optic nerve, not elsewhere classified, right eye; Translations: [Other disorders of optic nerve, not elsewhere classified, right eye] Onset: 07-13-2024 Chronic Other skin disorders (1 source) Nonscarring hair loss, unspecified; Translations: [Nonscarring hair loss, unspecified] Onset: 02-12-2025 Episodic Other upper respiratory disease (6 sources) Acute bronchospasm; Translations: [Acute bronchospasm] 04-25-2022 Episodic Other upper respiratory infections (6 sources) Upper respiratory infection; Translations: [Acute upper respiratory infection, unspecified] 04-25-2022 Episodic Results Test Name Value Interpretation Reference Range Facility Antinuclear Antibody, IFAon 03-20-2025 CHRISTOS, IFA Negative Normal . [facility] Comment on above: Result Comment: Nega tive <1:80 Borderline 1:80 Positive >1:80 ICAP nomenclature: AC-0 For more information about Hep-2 cell patterns use ANApatterns.org, the official website for the International Consensus on Antinuclear Antibody (CHRISTOS) Patterns (ICAP). Speckled cytoplasmic fluorescence is present. The antibodies noted in this pattern may be associated with, but not restricted to, primary biliary cirrhosis (PBC), polymyositis and dermatomyositis (PM/DM), and/or systemic lupus erythematosus (SLE). Performed at: [address] [id number] Analyst Programmer: Amor Handy PhD, Phone: [phone] Performed By: #### L 3300.6900, L506.1001, L501.33823, L3100.7950, L3300.1500, L503.6550, L3300.9900 #### [facility] [address] [place], [place], [address] DHEA Sulfateon 03-20-2025 DHEA SULFATE 172.0 ug/dL Normal 57.3-279.2 [facility] Comment on above: Order Comment: Test( s) 816499-[id number], Plasma or Serum was developed and its performance characteristics determined by [facility]. It has not been cleared or approved by the Food and Drug Administration. N Performed By: #### L 3300.6900, L506.1001, L501.92201, L3100.7950, L3300.1500, L503.6550, L3300.9900 #### [facility] [address] [place], [place], [id number] Thyroid Peroxidase ABon 03-09 THYR PEROX AB < 9 Normal 0-34 [facility] Comment on above: Order Comment: Test( s) 114038-Icov, Plasma or Serum was developed and its performance characteristics determined by [facility]. It has not been cleared or approved by the Food and Drug Administration. Result Comment: Perf ormed at: [address] [id number] Analyst Programmer: Amor Handy PhD, Phone: [phone] Performed at: [address] [id number] Analyst Programmer: Yris Solomon MD, Phone: [phone] Performed By: #### L 3300.6900, L506.1001, L501.44222, L3100.7950, L3300.1500, L503.6550, L3300.9900 #### [facility] [address] [place], [address] Zinc, Plasma or Serumon 03-09 ZINC,PLASMA/SER 65 ug/dL Normal 44-115 [facility] Comment on above: Order Comment: Test( s) 675590-Ejcz, Plasma or Serum was developed and its performance characteristics determined by [facility]. It has not been cleared or approved by the Food and Drug Administration. Result Comment: Dete ction Limit = 5 Performed By: #### L 3300.6900, L506.1001, L501.41271, L3100.7950, L3300.1500, L503.6550, L3300.9900 #### [facility] [address] [place], [address] Ferritinon 03-15-2025 Ferritin [Mass/Vol] 181 ng/mL Normal 22-378 [facility] Comment on above: Performed By: #### L 3300.6900, L506.1001, L501.51019, L3100.7950, L3300.1500, L503.6550, L3300.9900 #### [facility] [address] [place], [address] Free T3on 03-15-2025 Free T3 [Mass/Vol] 3.2 pg/mL Normal 2.18-3.98 [facility] Comment on above: Performed By: #### L 3300.6900, L506.1001, L501.12540, L3100.7950, L3300.1500, L503.6550, L3300.9900 #### [facility] [address] [place], [address] Vitamin D,25 Hydroxyon 03-15 Vitamin D 25-OH 20.6 ng/mL Low 30-100 [facility] Comment on above: Result Comment: Jud min D Status Deficiency: <20 ng/mL (50nmol/L) Insufficiency: 20-30 ng/mL (50-75 nmol/L) Sufficiency: 30-100 ng/mL (75-250 nmol/L) Toxicity: >100 ng/mL (>250 nmol/L) Performed By: #### L 3300.6900, L506.1001, L501.56969, L3100.7950, L3300.1500, L503.6550, L3300.9900 #### [facility] [address] [place], [address] Anion gap in Serum or Plasma Ordered By: Anoop Rodriguez on 02-04-2025 Anion gap [Moles/Vol] 12 mmol/L 5-15 [facility] BUN/creatinine ratioOrdered By: Anoop Rodriguez on 02-04-2025 Urea nitrogen/Creatinine [Mass ratio] 21.0 mg/mg High 10- [facility] Bilirubin, totalOrdered By: Anoop Rodriguez on 02-04-2025 Bilirubin [Mass/Vol] 0.39 mg/dL 0.00-1.30 [facility] Carbon dioxide, total [Moles /volume] in Central venous bloodOrdered By: Anoop Rodriguez on 02-04-2025 CO2 [Moles/Vol] 22.2 mmol/L 21.0-32.0 [facility] Chloride assayOrdered By: Josef Rodriguez on 02-04-2025 Chloride [Moles/Vol] 105 mmol/L 98-108 [facility] Comprehensive Metabolic Prof ilon 02-04-2025 Albumin [Mass/Vol] 4.2 g/dL Normal 3.5-5.0 [facility] Comment on above: Performed By: #### L 501.9520, L500.4050 #### [facility] [address] [place], [address] Albumin/Globulin [Mass ratio] 1.6 {ratio} Normal 0.9-2.4 [facility] Comment on above: Performed By: #### L 501.9520, L500.4050 #### [facility] [address] [place], [address] ALK PHOS 60 U/L Normal 35-104 [facility] Comment on above: Performed By: #### L 501.9520, L500.4050 #### [facility] [address] [place], [address] ALT [Catalytic activity/Vol] 15 U/L Normal <=34 [facility] Comment on above: Performed By: #### L 501.9520, L500.4050 #### [facility] [address] [place], [address] AST [Catalytic activity/Vol] 16 U/L Normal <=31 [facility] Comment on above: Performed By: #### L 501.9520, L500.4050 #### [facility] [address] [place], [address] Bilirubin [Mass/Vol] 0.39 mg/dL Normal 0.00-1.30 [facility] Comment on above: Performed By: #### L 501.9520, L500.4050 #### [facility] [address] [place], [address] BUN/CRE 21.0 RATIO High 10-20 [facility] Comment on above: Performed By: #### L 501.9520, L500.4050 #### [facility] [address] [place], [address] Calcium [Mass/Vol] 8.9 mg/dL Normal 7.6-11.0 [facility] Comment on above: Performed By: #### L 501.9520, L500.4050 #### [facility] [address] [place], [address] Chloride [Moles/Vol] 105 mmol/L Normal 98-108 [facility] Comment on above: Performed By: #### L 501.9520, L500.4050 #### [facility] [address] [place], [address] CO2 [Moles/Vol] 22.2 mmol/L Normal 21.0-32.0 [facility] Comment on above: Performed By: #### L 501.9520, L500.4050 #### [facility] [address] [place], [address] Creatinine [Mass/Vol] 0.54 mg/dL Low 0.70-1.20 [facility] Comment on above: Performed By: #### L 501.9520, L500.4050 #### [facility] [address] [place], [address] GAP 12 Normal 5-15 [facility] Comment on above: Performed By: #### L 501.9520, L500.4050 #### [facility] [address] [place], [address] GFR/1.73 sq M.predicted among non-blacks MDRD (S/P/Bld) [Vol rate/Area] 123 mL/min/{1.73_m2} Normal >60 [facility] Comment on above: Result Comment: mL/m in/1.73m2 CKD-EPI Creatinine Equation (2020) Performed By: #### L 501.9520, L500.4050 #### [facility] [address] [place], [address] Globulin (S) [Mass/Vol] 2.6 g/dL Normal 2.2-4.2 [facility] Comment on above: Performed By: #### L 501.9520, L500.4050 #### [facility] [address] [place], [address] Glucose [Mass/Vol] 108 mg/dL High 70-99 [facility] Comment on above: Performed By: #### L 501.9520, L500.4050 #### [facility] [address] [place], [address] Potassium [Moles/Vol] 3.9 mmol/L Normal 3.3-5.1 [facility] Comment on above: Performed By: #### L 501.9520, L500.4050 #### [facility] [address] [place], [address] Sodium [Moles/Vol] 139 mmol/L Normal 133-145 [facility] Comment on above: Performed By: #### L 501.9520, L500.4050 #### [facility] [address] [place], [address] T PROT 6.8 g/dL Normal 5.9-8.4 [facility] Comment on above: Performed By: #### L 501.9520, L500.4050 #### [facility] [address] [place], [address] Urea nitrogen [Mass/Vol] 11 mg/dL Normal 4-19 [facility] Comment on above: Performed By: #### L 501.9520, L500.4050 #### [facility] [address] [place], [address] Glomerular filtration rate ( GFR) estimation/1.73 sq m using serum, plasma, or whole bOrdered By: Anoop Rodriguez on 02-04-2025 GFR/1.73 sq M.predicted among non-blacks MDRD (S/P/Bld) [Vol rate/Area] 123 mL/min/{1.73_m2} >60 [facility] Comment on above: mL/min/1.73m2 CKD-EP I Creatinine Equation (2020) Laboratory - Chemistry and C hemistry - challengeOrdered By: Anoop Rodriguez on 02-04-2025 AST [Catalytic activity/Vol] 16 U/L <32 [facility] Potassium measurement (mass/ volume)Ordered By: Anoop Rodriguez on 02-04-2025 Potassium (Unsp spec) [Mass/Vol] 3.9 mmol/L 3.3-5.1 [facility] Serum creatinine measurement (mass/volume)Ordered By: Anoop Rodriguez on 02-04-2025 Creatinine [Mass/Vol] 0.54 mg/dL Low 0.70-1.20 [facility] Serum globulin measurementOr dered By: Anoop Rodriguez on 02-04-2025 Globulin (S) [Mass/Vol] 2.6 g/dL 2.2-4.2 [facility] Serum glucose measurement (m ass/volume)Ordered By: Anoop Rodriguez on 02-04-2025 Glucose [Mass/Vol] 108 mg/dL High 70-99 [facility] Serum or plasma alanine vazquez otransferase (ALT) measurementOrdered By: Anoop Rodriguez on 02-04-2025 ALT [Catalytic activity/Vol] 15 U/L <35 [facility] Serum or plasma albumin damir urement (mass/volume)Ordered By: Anoop Rodriguez on 02-04-2025 Albumin [Mass/Vol] 4.2 g/dL 3.5-5.0 [facility] Serum or plasma albumin/glob ulin mass ratioOrdered By: Anoop Rodriguez on 02-04-2025 Albumin/Globulin [Mass ratio] 1.6 {ratio} 0.9-2.4 [facility] Serum or plasma alkaline socorro sphatase measurementOrdered By: Anoop Rodriguez on 02-04-2025 ALP [Catalytic activity/Vol] 60 U/L 35-104 [facility] Serum or plasma calcium damir urement (mass/volume)Ordered By: Anoop Rodriguez on 02-04-2025 Calcium [Mass/Vol] 8.9 mg/dL 7.6-11.0 [facility] Serum or plasma urea nitroge n measurement (mass/volume)Ordered By: Anoop Rodriguez on 02-04-2025 Urea nitrogen [Mass/Vol] 11 mg/dL 4-19 [facility] Sodium levelOrdered By: Anoop Rodriguez on 02-04-2025 Sodium [Moles/Vol] 139 mmol/L 133-145 [facility] TSH DL <= 0.005 mIU/L QnOrde red By: Anoop Rodriguez on 02-04-2025 TSH Qn 2.260 uIU/mL 0.300-4.200 [facility] Thyroid Stim Hormone (TSH)on 02-04-2025 TSH 2.260 uIU/mL Normal 0.300-4.200 [facility] Comment on above: Performed By: #### L 501.9520, L500.4050 #### [facility] [address] [place], [address] Total proteinOrdered By: Flor Rodriguez on 02-04-2025 Protein [Mass/Vol] 6.8 g/dL 5.9-8.4 [facility] Spinal Fluid Cell Count+Diff on 12-19-2024 PATH REV Reviewed Normal [facility] Comment on above: Order Comment: REVIE WED BY DR. TRAMMELL.Sonia Trammell MD 12/19/2024 Result Comment: SEE REPORT IN PATIENT'S EMR Performed By: #### L 3300.6900, L506.1001, L501.28963, L3100.7950, L3300.1500, L503.6550, L3300.9900 #### [facility] [address] [place], [address] Cerebral Spinal Fluid Cultur sudarshan 07-26-2024 [facility] No growth in 72 hours. Normal [facility] Comment on above: Performed By: #### L 3300.6900, L506.1001, L501.24930, L3100.7950, L3300.1500, L503.6550, L3300.9900 #### [facility] [address] [place], [address] Absolute neutrophil countOrd ered By: Antonio Tamez on 07-24-2024 Neutrophils (Bld) [#/Vol] 6.3 10*3/uL 2.0-7.7 [facility] Appearance (CSF)Ordered By: Aly Bravo on 07-24-2024 CSF Appearance CLEAR Clear [facility] Basophil percentageOrdered B y: Antonio Tamez on 07-24-2024 Basophils/100 WBC (Bld) 0.4 % 0-1 [facility] CBC W/Diff, Automatedon 03- Absolute Lymph 1.25 X10 3/uL Normal 0.83-4.51 [facility] Comment on above: Performed By: #### L 3300.6900, L506.1001, L501.64767, L3100.7950, L3300.1500, L503.6550, L3300.9900 #### [facility] [address] [place], [address] Absolute Neut 6.3 X10 3/uL Normal 2.0-7.7 [facility] Comment on above: Performed By: #### L 3300.6900, L506.1001, L501.52616, L3100.7950, L3300.1500, L503.6550, L3300.9900 #### [facility] [address] [place], [address] Basophils/100 WBC (Bld) 0.4 % Normal 0-1 [facility] Comment on above: Performed By: #### L 3300.6900, L506.1001, L501.83604, L3100.7950, L3300.1500, L503.6550, L3300.9900 #### [facility] [address] [place], [address] Eosinophils/100 WBC (Bld) 1.8 % Normal 0-5 [facility] Comment on above: Performed By: #### L 3300.6900, L506.1001, L501.13910, L3100.7950, L3300.1500, L503.6550, L3300.9900 #### [facility] [address] [place], [address] Erythrocyte distribution width (RBC) [Ratio] 12.9 % Normal 11.6-14.6 [facility] Comment on above: Performed By: #### L 3300.6900, L506.1001, L501.74474, L3100.7950, L3300.1500, L503.6550, L3300.9900 #### [facility] [address] [place], [address] Hematocrit (Bld) [Volume fraction] 40.3 % Normal 37-47 [facility] Comment on above: Performed By: #### L 3300.6900, L506.1001, L501.85667, L3100.7950, L3300.1500, L503.6550, L3300.9900 #### [facility] [address] [place], [address] Hemoglobin (Bld) [Mass/Vol] 13.7 g/dL Normal 12.0-15.0 [facility] Comment on above: Performed By: #### L 3300.6900, L506.1001, L501.10789, L3100.7950, L3300.1500, L503.6550, L3300.9900 #### [facility] [address] [place], [address] IG% 0.500 Normal 0.0-0.9 [facility] Comment on above: Result Comment: IG% - Immature Granulocytes (promyelocytes, myelocytes and metamyelocytes) > 1% indicates that a LEFT SHIFT is Present. Performed By: #### L 3300.6900, L506.1001, L501.93607, L3100.7950, L3300.1500, L503.6550, L3300.9900 #### [facility] [address] [place], [address] Lymphocytes/100 WBC (Bld) 14.7 % Low 19-41 [facility] Comment on above: Performed By: #### L 3300.6900, L506.1001, L501.70972, L3100.7950, L3300.1500, L503.6550, L3300.9900 #### [facility] [address] [place], [address] MCH (RBC) [Entitic mass] 30.4 pg Normal 27.0-32.0 [facility] Comment on above: Performed By: #### L 3300.6900, L506.1001, L501.57962, L3100.7950, L3300.1500, L503.6550, L3300.9900 #### [facility] [address] [place], [address] MCHC (RBC) [Mass/Vol] 34.0 g/dL Normal 32-36 [facility] Comment on above: Performed By: #### L 3300.6900, L506.1001, L501.48438, L3100.7950, L3300.1500, L503.6550, L3300.9900 #### [facility] [address] [place], [address] MCV (RBC) [Entitic vol] 89.4 fL Normal 81-99 [facility] Comment on above: Performed By: #### L 3300.6900, L506.1001, L501.97582, L3100.7950, L3300.1500, L503.6550, L3300.9900 #### [facility] [address] [place], [address] Monocytes/100 WBC (Bld) 8.7 % Normal 0-10 [facility] Comment on above: Performed By: #### L 3300.6900, L506.1001, L501.71985, L3100.7950, L3300.1500, L503.6550, L3300.9900 #### [facility] [address] [place], [address] Neutrophils/100 WBC (Bld) 73.9 % High 47-70 [facility] Comment on above: Performed By: #### L 3300.6900, L506.1001, L501.26202, L3100.7950, L3300.1500, L503.6550, L3300.9900 #### [facility] [address] [place], [address] Nucleated RBC (Bld) [#/Vol] 0 10*3/uL Normal 0-5 [facility] Comment on above: Performed By: #### L 3300.6900, L506.1001, L501.40026, L3100.7950, L3300.1500, L503.6550, L3300.9900 #### [facility] [address] [place], [address] Platelet mean volume (Bld) [Entitic vol] 9.9 fL Normal 6.2-12.0 [facility] Comment on above: Performed By: #### L 3300.6900, L506.1001, L501.71789, L3100.7950, L3300.1500, L503.6550, L3300.9900 #### [facility] [address] [place], [address] Platelets (Bld) [#/Vol] 338 10*3/uL Normal 150-450 [facility] Comment on above: Performed By: #### L 3300.6900, L506.1001, L501.28942, L3100.7950, L3300.1500, L503.6550, L3300.9900 #### [facility] [address] [place], [address] RBC (Bld) [#/Vol] 4.51 10*6/uL Normal 4.2-5.4 [facility] Comment on above: Performed By: #### L 3300.6900, L506.1001, L501.75154, L3100.7950, L3300.1500, L503.6550, L3300.9900 #### [facility] [address] [place], [address] RDW SD 42.3 fl Normal 35.1-43.9 [facility] Comment on above: Performed By: #### L 3300.6900, L506.1001, L501.61439, L3100.7950, L3300.1500, L503.6550, L3300.9900 #### [facility] [address] [place], [address] WBC (Bld) [#/Vol] 8.5 10*3/uL Normal 4.4-11.0 [facility] Comment on above: Performed By: #### L 3300.6900, L506.1001, L501.66872, L3100.7950, L3300.1500, L503.6550, L3300.9900 #### [facility] [address] [place], [address] Cells Counted Total (CSF) [# ]Ordered By: Aly Bravo on 07-24-2024 [facility]: Test not performed Cerebrospinal fluid cultureO rdered By: Aly Bravo on 07-24-2024 CSF Culture No growth in 72 hours. [facility] Color (CSF)Ordered By: Aly Bravo on 07-24-2024 CSF Color COLORLESS Colorless [facility] Dx Lumbar Puncture w/IMG Lauri kalin 07-24-2024 Dx Lumbar Puncture w/IMG Guide [facility] Imaging Services [address] [place] [address] Dx Lumbar Puncture w/IMG Guide MR#: [id number] Acct: [id number] Name: YOLANDA RICHMOND Rep #: [id number] : 1990 F 34 From: Antonio carr MD PCP: Dr. Anoop Rodriguez MD Status: [facility] CL Study: Dx Lumbar Puncture w/IMG Guide Date of Exam: 0 07/24/24 Exam# [id number] Ordering Dr: Aly Bravo MD PROCEDURE: DX LUMBAR PUNCTURE W/IMG GUIDE 07/24/2024 REASON FOR EXAM: UNSPECIFIED PAPILLEDEMA, ENCOUNTER FOR OTHER PREPROCEDURAL EXAMIN TECHNIQUE: The procedure as well the benefits and possible complications including infection headaches were explained to the patient. Informed consent was obtained. The patient was in the prone position. The overlying skin was prepped and draped in the usual sterile fashion. Following local anesthetic application and under direct fluoroscopic guidance, a lumbar puncture was performed at the L2-L3 level. Free flow of CSF was detected. The opening pressure was 13 mm. 12 cc of clear CSF fluid was collected and sent to the laboratory for analysis as per request. COMPARISON: None FINDINGS: Successful lumbar puncture at the L2-L3 level. RAD/Dx Lumbar Puncture w/IMG Guide IMPRESSION: Successful lumbar puncture at the L2-L3 level without any immediate complications. The patient tolerated the procedure well. Reading Location: [place] [address] CC: Dr. Aly Bravo MD; Dr. Anoop Rodriguez MD Lumber Marker: Signed Normal [facility] Eosinophil percentageOrdered By: Antonio Tamez on 07-24-2024 Eosinophils/100 WBC (Bld) 1.8 % 0-5 [facility] Erythrocyte distribution wid th ratioOrdered By: Antonio Tamez on 07-24-2024 Erythrocyte distribution width (RBC) [Ratio] 12.9 % 11.6-14.6 [facility] Erythrocyte distribution wid th standard deviationOrdered By: Antonio Tamez on 07-24-2024 Erythrocyte distribution width (RBC) [Entitic vol] 42.3 fL 35.1-43.9 [facility] Gram Stainon 07-24-2024 GS Gram Stain Rare White Blood Cells No organisms seen Normal [facility] Comment on above: Performed By: #### L 3300.6900, L506.1001, L501.46065, L3100.7950, L3300.1500, L503.6550, L3300.9900 #### [facility] [address] [place], [place], [address] Gram stainOrdered By: Aly Bravo on 07-24-2024 Microscopic observation Gram stain Nom (Unsp spec) [facility] Hematocrit Auto (Bld) [Volum e fraction]Ordered By: Antonio Tamez on 07-24-2024 Hematocrit (Bld) [Volume fraction] 40.3 % 37-47 [facility] Hemoglobin measurementOrdere d By: Antonio Tamez on 07-24-2024 Hemoglobin (Bld) [Mass/Vol] 13.7 g/dL 12.0-15.0 [facility] Immature granulocytes/100 WB C Auto (Bld)Ordered By: Antonio Tamez on 07-24-2024 Immature granulocytes/100 WBC (Bld) 0.500 % 0.0-0.9 [facility] Comment on above: IG% - Immature Granu locytes (promyelocytes, myelocytes and metamyelocytes) > 1% indicates that a LEFT SHIFT is Present. International normalized rat io (INR) calculationOrdered By: Antonio Tamez on 07-24-2024 INR Coag (Bld) [Relative time] 1.0 {INR} [facility] Lymphocytes Auto (Unsp spec) [#/Vol]Ordered By: Antonio Tamez on 07-24-2024 Lymphocytes (Bld) [#/Vol] 1.25 10*3/uL 0.83-4.5 1 [facility] Lymphocytes/100 WBC Auto (Un sp spec)Ordered By: Antonio Tamez on 07-24-2024 Lymphocytes/100 WBC (Bld) 14.7 % Low 19-41 [facility] MCV (mean corpuscular volume ) determinationOrdered By: Antonio Tamez on 07-24-2024 MCV (RBC) [Entitic vol] 89.4 fL 81-99 [facility] Mean corpuscular hemoglobin (MCH) determinationOrdered By: Antonio Tamez on 07-24-2024 MCH (RBC) [Entitic mass] 30.4 pg 27.0-32.0 [facility] Mean corpuscular hemoglobin concentration (MCHC) determinationOrdered By: Antonio Tamez on 07-24-2024 MCHC (RBC) [Mass/Vol] 34.0 g/dL 32-36 [facility] Mean platelet volume determi nationOrdered By: Antonio Tamez on 07-24-2024 Platelet mean volume (Bld) [Entitic vol] 9.9 fL 6.2-12.0 [facility] Monocyte percentageOrdered B y: Antonio Tamez on 07-24-2024 Monocytes/100 WBC (Bld) 8.7 % 0-10 [facility] Monocytes/100 WBC (CSF)Order ed By: Aly Bravo on 07-24-2024 CSF Monocytes 100 % High 15-45 [facility] Neutrophil percentageOrdered By: Antonio Tamez on 07-24-2024 Neutrophils/100 WBC (Bld) 73.9 % High 47-70 [facility] Nucleated red blood cell per centageOrdered By: Antonio Tamez on 07-24-2024 Nucleated RBC/100 WBC (Bld) [Ratio] 0 % 0-5 [facility] Partial Thromboplast Timeon 07-24-2024 aPTT Coag (Bld) [Time] 30.9 s Normal 24.1-36.2 [facility] Comment on above: Performed By: #### L 3300.6900, L506.1001, L501.36704, L3100.7950, L3300.1500, L503.6550, L3300.9900 #### [facility] [address] [place], [address] Pathologist review Vincenzo (Unsp spec) [Interp]Ordered By: Aly Bravo on 07-24-2024 CSF Comment May follow [facility] Platelet countOrdered By: Nii Tamez on 07-24-2024 Platelets (Bld) [#/Vol] 338 10*3/uL 150-450 [facility] Prothrombin Time w/INRon INR Coag (PPP) [Relative time] 1.0 {INR} Normal [facility] Comment on above: Performed By: #### L 3300.6900, L506.1001, L501.65598, L3100.7950, L3300.1500, L503.6550, L3300.9900 #### [facility] [address] [place], [address] PT Coag (PPP) [Time] 13.1 s Normal 11.7-14.9 [facility] Comment on above: Performed By: #### L 3300.6900, L506.1001, L501.28245, L3100.7950, L3300.1500, L503.6550, L3300.9900 #### [facility] [address] [place], [place], [id number] Prothrombin timeOrdered By: Antonio Tamez on 07-24-2024 PT Coag (PPP) [Time] 13.1 s 11.7-14.9 [facility] RBC (CSF) [#/Vol]Ordered By: Aly Bravo on 07-24-2024 CSF RBC 0 /mm-3 None seen [facility] RBC Auto (Bld) [#/Vol]Ordere d By: Antonio Tamez on 07-24-2024 RBC (Bld) [#/Vol] 4.51 10*6/uL 4.2-5.4 [facility] Tube number Nom (CSF) [ID]Or dered By: Aly Bravo on 07-24-2024 CSF Cell Count Tube # 4 [facility] WBC (CSF) [#/Vol]Ordered By: Aly Bravo on 07-24-2024 CSF WBC 0 /mm-3 0-5 [facility] White blood cell (WBC) count Ordered By: Antonio Tamez on 07-24-2024 WBC (Bld) [#/Vol] 8.5 10*3/uL 4.4-11.0 [facility] aPTT Coag (PPP) [Time]Ordere d By: Antonio Tamez on 07-24-2024 aPTT Coag (Bld) [Time] 30.9 s 24.1-36.2 [facility] Magnetic resonance imaging r eportOrdered By: Boston Diego on 07-23-2024 Study report [facility] Imaging Services [address] [place], [place] [id number] Brain W/WO Contrast MR#: [id number] Acct: [id number] Name: YOLANDA RICHMOND Rep #: [id number] : 1990 F 34 From: Georgiana Diego MD PCP: Dr. Anoop Rodriguez MD Status: KATHERINE Kwadwo ADRIANA Study:Brain W/WO Contrast Date of Exam: 07/16/24 Exam# [id number] Ordering Dr: Rosanne Bravo MD ADDENDUM by Dr. Boston Diego MD on 07/23/24 at 1657 21 cc Clariscan was administered intravenously. Reading [facility] 07/23/24 1657 Date cc: Dr. Aly Bravo MD; Dr. Anoop Rodriguez MD ~* Signed PROCEDURE: TECHNIQUE: Multiplanar, multi-sequence MRI of brain was performed without and with IV contrast. FINDINGS: BRAIN/PARENCHYMA: No evidence of acute infarction or acute intracranial hemorrhage. There are subcortical and periventricular white matter FLAIR hyperintensities, likely related to chronic microvascular ischemic disease. No abnormal post-contrast enhancement. EXTRA-AXIAL SPACES: No abnormal extra-axial fluid collections. Patent basal cisterns and foramen magnum. MIDLINE SHIFT: None. VENTRICLES: No hydrocephalus. SCALP SOFT TISSUES & CALVARIUM: No significant abnormality. VISUALIZED SINUSES & MASTOIDS: No air-fluid levels in the paranasal sinuses. Themastoid air cells are clear. ARTERIAL FLOW VOIDS: Preserved major arterial flow voids indicating gross patency. ORBIT: Central T2 hyperintensity along the left canalicular optic nerve (series 9, image 15). No significant enhancement is noted. Remainder of the orbit is within normal limits. No intraconal or extraconal masses noted. MRI/Brain W/WO Contrast IMPRESSION: 1. Mildly increased T2 hyperintensity involving the left canalicular optic nerve. No significant enhancement otherwise, unremarkable MRI of the brain.. COMPARISON: None. Reading [facility] CC: Dr. Aly Bravo MD; Dr. Anoop Rodriguez MD ~ Lumber Marker: Signed [facility] Brain W/WO Contraston 2024 Brain W/WO Contrast [facility] Imaging Services [address] [place] [address] Brain W/WO Contrast MR#: [id number] Acct: [id number] Name: YOLANDA RICHMOND Rep #: [id number] : 1990 F 34 From: Boston kerr MD PCP: Dr. Anoop Rodriguez MD Status: REG CLI Study: Brain W/WO Contrast Date of Exam: 07/16/24 Exam# [id number] Ordering Dr: Aly Bravo MD ADDENDUM by Dr. Boston Diego MD on 07/23/24 at 1657 21 cc Clariscan was administered intravenously. Reading Location[facility] 07/23/241656 Date cc: Dr. Aly Bravo MD; Dr. Anoop Rodriguez MD * Signed PROCEDURE: TECHNIQUE: Multiplanar, multi-sequence MRI of brain was performed without and with IV contrast. FINDINGS: BRAIN/PARENCHYMA: No evidence of acute infarction or acute intracranial hemorrhage. There are subcortical and periventricular white matter FLAIR hyperintensities, likely related to chronic microvascular ischemic disease. No abnormal post-contrast enhancement. EXTRA-AXIAL SPACES: No abnormal extra-axial fluid collections. Patent basal cisterns and foramen magnum. MIDLINE SHIFT: None. VENTRICLES: No hydrocephalus. SCALP SOFT TISSUES CALVARIUM: No significant abnormality. VISUALIZED SINUSES MASTOIDS: No air-fluid levels in the paranasal sinuses. The mastoid air cells are clear. ARTERIAL FLOW VOIDS: Preserved major arterial flow voids indicating gross patency. ORBIT: Central T2 hyperintensity along the left canalicular optic nerve (series 9, image 15). No significant enhancement is noted. Remainder of the orbit is within normal limits. No intraconal or extraconal masses noted. MRI/Brain W/WO Contrast IMPRESSION: 1. Mildly increased T2 hyperintensity involving the left canalicular optic nerve. No significant enhancement otherwise, unremarkable MRI of the brain.. COMPARISON: None. Reading Location[facility] CC: Dr. Aly Bravo MD; Dr. Anoop Rodriguez MD Lumber Marker: Signed Normal [facility] MRV Head Without Contraston 07-16-2024 MRV Head Without Contrast [facility] Imaging Services [address] [place], [place] [id number] MRV Head Without Contrast MR#: [id number] Acct: [id number] Name: YOLANDA RICHMOND Rep #: [id number] : 1990 F 34 From: Boston kerr MD PCP: Dr. Anoop Rodriguez MD Status: REG CLI Study: MRV Head Without Contrast Date of Exam: Exam# [id number] Ordering Dr: Aly Bravo MD PROCEDURE: MRV HEAD WITHOUT CONTRAST REASON FOR EXAM: BILATERAL OPTIC NERVE EDEMA COMPARISON: None. TECHNIQUE: 2D Time of Flight MRV of the head without intravenous contrast. 3D reformatted images. FINDINGS: No evidence of dural venous sinus thrombosis. Superior sagittal sinus, transverse sinus, straight sinus, vein of Eh, sigmoid sinus and imaged internal jugular veins are within normal limits. No significant stenosis. MRI/MRV Head Without Contrast IMPRESSION: No evidence of dural venous stenosis or thrombosis. Reading Location[facility] CC: Dr. Aly Bravo MD; Dr. Anoop Rodriguez MD Lumber Marker: Signed Normal [facility] Magnetic resonance imaging r eportOrdered By: Boston Diego on 07-16-2024 Study report [facility] Imaging Services [address] [place] [address] MRV Head Without Contrast MR#: [id number] Acct: [id number] Name: YOLANDA RICHMOND Rep #: [id number] : 1990 F 34 From: Georgiana Diego MD PCP: Dr. Anoop Rodriguez MD Status: REG C LI Study:MRV Head Without Contrast Date of Exam: 07/16/24 Exam# [id number] Ordering Dr: Rosanne Bravo MD PROCEDURE: MRV HEAD WITHOUT CONTRAST REASON FOR EXAM: BILATERAL OPTIC NERVE EDEMA COMPARISON: None. TECHNIQUE: 2D Time of Flight MRV of the head without intravenous contrast. 3D reformatted images. FINDINGS: No evidence of dural venous sinus thrombosis. Superior sagittal sinus, transverse sinus, straight sinus, vein of Eh, sigmoid sinus and imaged internal jugular veins are within normal limits. No significant stenosis. MRI/MRV Head Without Contrast IMPRESSION: No evidence of dural venous stenosis or thrombosis. Reading Location: [facility] CC: Dr. Aly Bravo MD; Dr. Anoop Rodriguez MD ~ Lumber Marker: Signed [facility] Absolute neutrophil countOrd ered By: Anoop Rodriguez on 07-09-2024 Neutrophils (Bld) [#/Vol] 8.0 10*3/uL High 2.0-7.7 [facility] Automated blood erythrocyte countOrdered By: Anoop Rodriguez on 07-09-2024 RBC (Bld) [#/Vol] 4.67 10*6/uL Normal 4.2-5.4 [facility] Comment on above: Performed By: #### L 500.2500, L100.0100, L101.9900, L501.6710 #### [facility] [address] [place], [place], [id number] Automated blood hematocrit ( percentage)Ordered By: Anoop Rodriguez on 07-09-2024 Hematocrit (Bld) [Volume fraction] 42.2 % Normal 37-47 [facility] Comment on above: Performed By: #### L 500.2500, L100.0100, L101.9900, L501.6710 #### [facility] [address] [facility] [place], [place], [id number] Automated lymphocyte count a s percentage of total leukocytesOrdered By: Anoop Rodriguez on 07-09-2024 Lymphocytes/100 WBC (Bld) 13.4 % Low 19-41 [facility] Comment on above: Performed By: #### L 500.2500, L100.0100, L101.9900, L501.6710 #### [facility] [address] [place], [address] BUN/creatinine ratioOrdered By: Anoop Rodriguez on 07-09-2024 Urea nitrogen/Creatinine [Mass ratio] 19.9 mg/mg 10-20 [facility] Basic Metabolic Profile (BMP )on 07-09-2024 Anion gap [Moles/Vol] 13 mmol/L Normal 5-15 [facility] Comment on above: Performed By: #### L 3300.6900, L506.1001, L501.27084, L3100.7950, L3300.1500, L503.6550, L3300.9900 #### [facility] [address] [place], [address] BUN/CRE 19.9 RATIO Normal 10-20 [facility] Comment on above: Performed By: #### L 3300.6900, L506.1001, L501.91239, L3100.7950, L3300.1500, L503.6550, L3300.9900 #### [facility] [address] [place], [address] Calcium [Mass/Vol] 9.5 mg/dL Normal 7.6-11.0 [facility] Comment on above: Performed By: #### L 3300.6900, L506.1001, L501.62033, L3100.7950, L3300.1500, L503.6550, L3300.9900 #### [facility] [address] [place], [address] Chloride [Moles/Vol] 102 mmol/L Normal 96-108 [facility] Comment on above: Performed By: #### L 3300.6900, L506.1001, L501.86129, L3100.7950, L3300.1500, L503.6550, L3300.9900 #### [facility] [address] [place], [address] CO2 [Moles/Vol] 22.1 mmol/L Normal 22.0-29.0 [facility] Comment on above: Performed By: #### L 3300.6900, L506.1001, L501.74081, L3100.7950, L3300.1500, L503.6550, L3300.9900 #### [facility] [address] [place], [address] Creatinine [Mass/Vol] 0.56 mg/dL Low 0.70-1.20 [facility] Comment on above: Performed By: #### L 3300.6900, L506.1001, L501.71622, L3100.7950, L3300.1500, L503.6550, L3300.9900 #### [facility] [address] [place], [address] GFR/1.73 sq M.predicted among non-blacks MDRD (S/P/Bld) [Vol rate/Area] 122 mL/min/{1.73_m2} Normal >60 [facility] Comment on above: Result Comment: mL/m in/1.73m2 CKD-EPI Creatinine Equation (2020) Performed By: #### L 3300.6900, L506.1001, L501.76720, L3100.7950, L3300.1500, L503.6550, L3300.9900 #### [facility] [address] [place], [address] Glucose [Mass/Vol] 88 mg/dL Normal 70-99 [facility] Comment on above: Performed By: #### L 3300.6900, L506.1001, L501.39134, L3100.7950, L3300.1500, L503.6550, L3300.9900 #### [facility] [address] [place], [address] Potassium [Moles/Vol] 4.0 mmol/L Normal 3.3-5.1 [facility] Comment on above: Performed By: #### L 3300.6900, L506.1001, L501.91739, L3100.7950, L3300.1500, L503.6550, L3300.9900 #### [facility] [address] [place], [address] Sodium [Moles/Vol] 137 mmol/L Normal 133-145 [facility] Comment on above: Performed By: #### L 3300.6900, L506.1001, L501.60040, L3100.7950, L3300.1500, L503.6550, L3300.9900 #### [facility] [address] [place], [address] Urea nitrogen [Mass/Vol] 11 mg/dL Normal 4-19 [facility] Comment on above: Performed By: #### L 3300.6900, L506.1001, L501.63517, L3100.7950, L3300.1500, L503.6550, L3300.9900 #### [facility] [address] [place], [address] Basophil percentageOrdered B y: Anoop Rodriguez on 07-09-2024 Basophils/100 WBC (Bld) 0.4 % Normal 0-1 [facility] Comment on above: Performed By: #### L 500.2500, L100.0100, L101.9900, L501.6710 #### [facility] [address] [place], [address] CBC W/Diff, Automatedon Absolute Lymph 1.39 X10 3/uL Normal 0.83-4.51 [facility] Comment on above: Performed By: #### L 500.2500, L100.0100, L101.9900, L501.6710 #### [facility] [address] [place], [address] Absolute Neut 8.0 X10 3/uL High 2.0-7.7 [facility] Comment on above: Performed By: #### L 500.2500, L100.0100, L101.9900, L501.6710 #### [facility] [address] [place], [address] IG% 0.500 Normal 0.0-0.9 [facility] Comment on above: Result Comment: IG% - Immature Granulocytes (promyelocytes, myelocytes and metamyelocytes) > 1% indicates that a LEFT SHIFT is Present. Performed By: #### L 500.2500, L100.0100, L101.9900, L501.6710 #### [facility] [address], [address] Nucleated RBC (Bld) [#/Vol] 0 10*3/uL Normal 0-5 [facility] Comment on above: Performed By: #### L 500.2500, L100.0100, L101.9900, L501.6710 #### [facility] [address] [place], [address] RDW SD 42.6 fl Normal 35.1-43.9 [facility] Comment on above: Performed By: #### L 500.2500, L100.0100, L101.9900, L501.6710 #### [facility] [address] [place], [address] CRPon 07-09-2024 C-REACTIVE PROT 25.30 mg/L High 0.0-3.0 [facility] Comment on above: Performed By: #### L 3300.6900, L506.1001, L501.61261, L3100.7950, L3300.1500, L503.6550, L3300.9900 #### [facility] [facility] [address] [place], [address] CRP [Mass/Vol]Ordered By: Josef Rodriguez on 07-09-2024 C-Reactive Protein Extended Range 25.30 mg/L High 0.0-3.0 [facility] Carbon dioxide measurementOr dered By: Anoop Rodriguez on 07-09-2024 CO2 [Moles/Vol] 22.1 mmol/L 22.0-29.0 [facility] Chloride measurementOrdered By: Anoop Rodriguez on 07-09-2024 Chloride [Moles/Vol] 102 mmol/L 96-108 [facility] Eosinophil percentageOrdered By: Anoop Rodriguez on 07-09-2024 Eosinophils/100 WBC (Bld) 1.3 % Normal 0-5 [facility] Comment on above: Performed By: #### L 500.2500, L100.0100, L101.9900, L501.6710 #### [facility] [address] [place], [place], [id number] Erythrocyte Sed Rateon 07-09 SED RATE 16 mm/hr Normal 0-30 [facility] Comment on above: Performed By: #### L 3300.6900, L506.1001, L501.48797, L3100.7950, L3300.1500, L503.6550, L3300.9900 #### [facility] [address] [place], [place], [id number] Erythrocyte distribution wid th ratioOrdered By: Anoop Rodriguez on 07-09-2024 Erythrocyte distribution width (RBC) [Ratio] 12.9 % Normal 11.6-14.6 [facility] Comment on above: Performed By: #### L 500.2500, L100.0100, L101.9900, L501.6710 #### [facility] [address] [place], [address] Erythrocyte distribution wid th standard deviationOrdered By: Anoop Rodriguez on 07-09-2024 Erythrocyte distribution width (RBC) [Entitic vol] 42.6 fL 35.1-43.9 [facility] Erythrocyte sedimentation ra teOrdered By: Anoop Rodriguez on 07-09-2024 ESR (Bld) [Velocity] 16 mm/h 0-30 [facility] GFR/1.73 sq M.predicted catalina g non-blacks MDRD (S/P/Bld) [Vol rate/Area]Ordered By: Anoop Rodriguez on 07-09-2024 Estimated GFR (MDRD) Non-Af Amer 122 >60 [facility] Comment on above: mL/min/1.73m2 CKD-EP I Creatinine Equation (2020) Hemoglobin measurementOrdere d By: Anoop Rodriguez on 07-09-2024 Hemoglobin (Bld) [Mass/Vol] 14.0 g/dL Normal 12.0-15.0 [facility] Comment on above: Performed By: #### L 500.2500, L100.0100, L101.9900, L501.6710 #### [facility] [address] [place], [place], [id number] Immature granulocytes/100 WB C Auto (Bld)Ordered By: Anoop Rodriguez on 07-09-2024 Immature granulocytes/100 WBC (Bld) 0.500 % 0.0-0.9 [facility] Comment on above: IG% - Immature Granu locytes (promyelocytes, myelocytes and metamyelocytes) > 1% indicates that a LEFT SHIFT is Present. Lymphocytes Auto (Unsp spec) [#/Vol]Ordered By: Anoop Rodriguez on 07-09-2024 Lymphocytes (Bld) [#/Vol] 1.39 10*3/uL 0.83-4.5 1 [facility] MCV (mean corpuscular volume ) determinationOrdered By: Anoop Rodriguez on 07-09-2024 MCV (RBC) [Entitic vol] 90.4 fL Normal 81-99 [facility] Comment on above: Performed By: #### L 500.2500, L100.0100, L101.9900, L501.6710 #### [facility] [address] [place], [place], [id number] Mean corpuscular hemoglobin (MCH) determinationOrdered By: Anoop Rodriguez on 07-09-2024 MCH (RBC) [Entitic mass] 30.0 pg Normal 27.0-32.0 [facility] Comment on above: Performed By: #### L 500.2500, L100.0100, L101.9900, L501.6710 #### [facility] [address] [place], [address] Mean corpuscular hemoglobin concentration (MCHC) determinationOrdered By: Anoop Rodriguez on 07-09-2024 MCHC (RBC) [Mass/Vol] 33.2 g/dL Normal 32-36 [facility] Comment on above: Performed By: #### L 500.2500, L100.0100, L101.9900, L501.6710 #### [facility] [address] [place], [address] Mean platelet volume determi nationOrdered By: Anoop Rodriguez on 07-09-2024 Platelet mean volume (Bld) [Entitic vol] 10.3 fL Normal 6.2-12.0 [facility] Comment on above: Performed By: #### L 500.2500, L100.0100, L101.9900, L501.6710 #### [facility] [address], [address] Monocyte percentageOrdered B y: Anoop Rodriguez on 07-09-2024 Monocytes/100 WBC (Bld) 7.9 % Normal 0-10 [facility] Comment on above: Performed By: #### L 500.2500, L100.0100, L101.9900, L501.6710 #### [facility] [address] [place], [address] Neutrophil percentageOrdered By: Anoop Rodriguez on 07-09-2024 Neutrophils/100 WBC (Bld) 76.5 % High 47-70 [facility] Comment on above: Performed By: #### L 500.2500, L100.0100, L101.9900, L501.6710 #### [facility] [address] [place], [address] Nucleated red blood cell per centageOrdered By: Anoop Rodriguez on 07-09-2024 Nucleated RBC/100 WBC (Bld) [Ratio] 0 % 0-5 [facility] Platelet countOrdered By: Josef Rodriguez on 07-09-2024 Platelets (Bld) [#/Vol] 375 10*3/uL Normal 150-450 [facility] Comment on above: Performed By: #### L 500.2500, L100.0100, L101.9900, L501.6710 #### [facility] [address] [place], [place], [id number] Serum creatinine measurement (mass/volume)Ordered By: Anoop Rodriguez on 07-09-2024 Creatinine [Mass/Vol] 0.56 mg/dL Low 0.70-1.20 [facility] Serum glucose measurement (m ass/volume)Ordered By: Anoop Rodriguez on 07-09-2024 Glucose [Mass/Vol] 88 mg/dL 70-99 [facility] Serum or plasma anion gap de termination (moles/volume)Ordered By: Anoop Rodriguez on 07-09-2024 Anion gap [Moles/Vol] 13 mmol/L 5-15 [facility] Serum or plasma calcium damir urement (mass/volume)Ordered By: Anoop Rodriguez on 07-09-2024 Calcium [Mass/Vol] 9.5 mg/dL 7.6-11.0 [facility] Serum or plasma potassium me asurementOrdered By: Anoop Rodriguez on 07-09-2024 Potassium [Moles/Vol] 4.0 mmol/L 3.3-5.1 [facility] Serum or plasma sodium measu rement (moles/volume)Ordered By: Anoop Rodriguez on 07-09-2024 Sodium [Moles/Vol] 137 mmol/L 133-145 [facility] Serum or plasma urea nitroge n measurement (mass/volume)Ordered By: Anoop Rodriguez on 07-09-2024 Urea nitrogen [Mass/Vol] 11 mg/dL 4-19 [facility] White blood cell (WBC) count Ordered By: Anoop Rodriguez on 07-09-2024 WBC (Bld) [#/Vol] 10.4 10*3/uL Normal 4.4-11.0 [facility] Comment on above: Performed By: #### L 500.2500, L100.0100, L101.9900, L501.6710 #### [facility] [address] [place], [address] Absolute lymphocyte countOrd ered By: Anoop Rodriguez on 08-18-2023 Lymphocytes Auto (Unsp spec) [#/Vol] 1.48 10*3/uL 0.83-4.51 [facility] Automated lymphocyte count a s percentage of total leukocytesOrdered By: Anoop Rodriguez on 08-18-2023 Lymphocytes/100 WBC Auto (Unsp spec) 17.9 % 19-41 [facility] Basophil percentageOrdered B y: Anoop Rodriguez on 08-18-2023 Basophils/100 WBC (Bld) 0.2 % 0-1 [facility] Chloride [Moles/Vol] 106 mmol/L 98-107 [facility] Eosinophils/100 WBC (Bld) 2.1 % 0-5 [facility] Glucose [Mass/Vol] 95 mg/dL 74-106 [facility] Hemoglobin (Bld) [Mass/Vol] 13.8 g/dL 12.0-15.0 [facility] Monocytes/100 WBC (Bld) 7.4 % 0-10 [facility] Neutrophils (Bld) [#/Vol] 6.0 10*3/uL 2.0-7.7 [facility] Neutrophils/100 WBC (Bld) 71.9 % 47-70 [facility] Potassium [Moles/Vol] 3.6 mmol/L 3.5-5.1 [facility] Sodium [Moles/Vol] 137 mmol/L 136-145 [facility] WBC (Bld) [#/Vol] 8.3 10*3/uL 4.4-11.0 [facility] Determination of erythrocyte mean corpuscular volume (MCV)Ordered By: Anoop Rodriguez on 08-18-2023 MCV (RBC) [Entitic vol] 90.6 fL 81-99 [facility] Erythrocyte distribution wid th ratioOrdered By: Anoop Rodriguez on 08-18-2023 Erythrocyte distribution width (RBC) [Ratio] 12.9 % 11.6-14.6 [facility] Erythrocyte distribution wid th standard deviationOrdered By: Anoop Rodriguez on 08-18-2023 Erythrocyte distribution width (RBC) [Entitic vol] 42.6 fL 35.1-43.9 [facility] Hematocrit Auto (Bld) [Volum e fraction]Ordered By: Anoop Rodriguez on 08-18-2023 Hematocrit (Bld) [Volume fraction] 41.3 % 37-47 [facility] Immature granulocytes/100 WB C Auto (Bld)Ordered By: Anoop Rodriguez on 08-18-2023 Immature granulocytes/100 WBC (Bld) 0.500 % 0.0-0.9 [facility] Comment on above: IG% - Immature Granu locytes (promyelocytes, myelocytes and metamyelocytes) > 1% indicates that a LEFT SHIFT is Present. Laboratory - Chemistry and C hemistry - challengeOrdered By: Anoop Rodriguez on 08-18-2023 CO2 [Moles/Vol] 27.0 mmol/L 21.0-32.0 [facility] Urea nitrogen/Creatinine [Mass ratio] 21.5 mg/mg 10-20 [facility] - Hematology and Cell countsOrdered By: Anoop Rodriguez on 08-18-2023 MCH (RBC) [Entitic mass] 30.3 pg 27.0-32.0 [facility] MCHC (RBC) [Mass/Vol] 33.4 g/dL 32-36 [facility] Nucleated RBC/100 WBC (Bld) [Ratio] 0 % 0-5 [facility] Platelet mean volume (Bld) [Entitic vol] 10.6 fL 6.2-12.0 [facility] Platelets (Bld) [#/Vol] 359 10*3/uL 150-450 [facility] No Panel InformationOrdered By: Anoop Rodriguez on 08-18-2023 Estimated GFR (MDRD) Amer 115 mL/min >60 [facility] Comment on above: GFR Calc Estimated GFR (MDRD) Non-Af Amer 95 mL/min >60 [facility] Comment on above: Non- GFR Calc Free Triiodothyronine (T3) pg/dL 2.7 pg/mL 2.18-3.98 [facility] RBC Auto (Bld) [#/Vol]Ordere d By: Anoop Rodriguez on 08-18-2023 RBC (Bld) [#/Vol] 4.56 10*6/uL 4.2-5.4 [facility] Serum or plasma calcium damir urement (mass/volume)Ordered By: Anoop Rodriguez on 08-18-2023 Calcium [Mass/Vol] 9.0 mg/dL 8.5-10.1 [facility] Serum or plasma creatinine m easurement (mass/volume)Ordered By: Anoop Rodriguez on 08-18-2023 Creatinine [Mass/Vol] 0.74 mg/dL 0.55-1.02 [facility] Comment on above: The validity of the calculated GFR & GFRAA in patients over 70 years has not been determined. Clinical correlation is essential. Serum or plasma thyroid stim ulating hormone (TSH) measurement (units/volume)Ordered By: Anoop Rodriguez on 08-18-2023 TSH Qn 2.33 uIU/mL 0.358-3.74 [facility] Serum or plasma urea nitroge n measurement (mass/volume)Ordered By: Anoop Rodriguez on 08-18-2023 Urea nitrogen [Mass/Vol] 16 mg/dL 7-18 [facility] Thin prep Papanicolaou smear with manual screeningOrdered By: Anoop Rodriguez on 08-18-2023 Thin prep Papanicolaou smear with manual screening 4 5-15 [facility] Thin prep Papanicolaou smear with manual screening 1.10 ng/dL 0.76-1.46 [facility] - Microbiology an d Antimicrobial susceptibilityon 04-25-2022 SARS-CoV-2 (COVID-19) RNA PRISCILLA+probe Ql (Unsp spec) Not detected [facility] No Panel Informationon 04-25 Influenza Types A,B Rapid (Clinic) Detected [facility] Vital Signs Date Time Vital Sign Value Performing Clinician Faci lity 07-24-2024 14:54-0400 Diastolic blood pressure 79 mm[Hg] Dr. Anoop Rodriguez MD Work Phone: [facility] 07-24-2024 14:54-0400 Heart rate 74 /min Dr. Anoop Rodriguez MD Work Phone: [facility] 07-24-2024 14:54-0400 Respiratory rate 16 /min Dr. Anoop Rodriguez MD Work Phone: [facility] 07-24-2024 14:54-0400 SaO2% (BldA) [Mass fraction] 99 % Dr. Anoop Rodriguez MD Work Phone: [facility] 07-24-2024 14:54-0400 Systolic blood pressure 118 mm[Hg] Dr. Anoop Rodriguez MD Work Phone: [facility] 07-24-2024 13:16-0400 Body height 160.[address] Anoop Rodriguez MD Work Phone: [facility] 07-24-2024 13:16-0400 Body mass index (BMI) [Ratio] 40.1 kg/m2 Dr. Anoop Rodriguez MD Work Phone: [facility] 07-24-2024 13:16-0400 Body weight 102.[address] Anoop Rodriguez MD Work Phone: [facility] 07-24-2024 13:15-0400 Body temperature 98.5 [degF] Dr. Anoop Rodriguez MD Work Phone: [facility] 04-25-2022 09:26-0500 Body height 162.56 cm PA Lexii Domer PA Work Phone: [facility] 04-25-2022 09:26-0500 Body mass index (BMI) [Ratio] 38.2 kg/m2 PA Lexii Domer PA Work Phone: [facility] 04-25-2022 09:26-0500 Body temperature 99.2 [degF] PA Lexii Domer PA Work Phone: [facility] 04-25-2022 09:26-0500 Body weight 101.15 kg PA Lexii Domer PA Work Phone: [facility] 04-25-2022 09:26-0500 Diastolic blood pressure 80 mm[Hg] PA Lexii Domer PA Work Phone: [facility] 04-25-2022 09:26-0500 Heart rate 119 /min PA Lexii Domer PA Work Phone: [facility] 04-25-2022 09:26-0500 Respiratory rate 16 /min PA Lexii Domer PA Work Phone: [facility] 04-25-2022 09:26-0500 SaO2% (BldA) [Mass fraction] 97 % PA Lexii Domer PA Work Phone: [facility] 04-25-2022 09:26-0500 Systolic blood pressure 126 mm[Hg] PA Lexii Domer PA Work Phone: [facility] Encounters Encounter Date Encounter Type Care Provider Facility Start: 03-15-2025 ambulatory Anoop Rodriguez Facility:[facility] Start: 02-25-2025 ambulatory Anoop Rodriguez Facility:[facility] Start: 02-04-2025 End: 02-04-[address] Anoop Rodriguez MD Work Phone: -Laboratory [facility] Start: 02-04-2025 End: 02-04-[address] Anoop Rodriguez MD -Laboratory [facility] Start: 02-04-2025 End: 02-04-2025 ambulatory Anoop Rodriguez Facility:[facility] Start: 08-02-2024 Encounter for other preprocedural examination Aly rBavo [facility] Start: 07-24-2024 End: 07-24-[address] Anoop Rodriguez MD Work Phone: [facility] Work Phone: Start: 07-24-2024 End: 07-24-[address] Aly Bravo MD -Radiology, [facility] Work Phone: Start: 07-24-2024 End: 07-24-2024 ambulatory Anoop Rodriguez Facility:[facility] Start: 07-16-2024 End: 07-16-[address] Anoop Rodriguez MD Work Phone: [facility] Work Phone: Start: 07-16-2024 End: 07-16-[address] Aly Bravo MD -MRI - [facility] Work Phone: Start: 07-16-2024 End: 07-16-2024 ambulatory Anoop Rodriguez Facility:[facility] Start: 07-09-2024 End: 07-09-[address] Anoop Rodriguez MD Work Phone: [facility] Work Phone: Start: 07-09-2024 End: 07-09-[address] Anoop Rodriguez MD -[facility] Start: 07-09-2024 End: 07-09-2024 ambulatory Anoop Rodriguez Facility:[facility] Start: 08-18-2023 End: 08-18-2023 ambulatory [facility] Work Phone: Start: 08-18-2023 End: 08-18-2023 Patient encounter procedure [facility] Start: 06-04-2022 End: 06-04-2022 ambulatory JOSEF SOLORIO Work Phone: [facility] Work Phone: Start: 06-04-2022 End: 06-04-2022 Patient encounter procedure JOSEF SOLORIO Work Phone: [facility] Start: 04-25-2022 End: 04-25-2022 Patient encounter procedure JOSEF SOLORIO Work Phone: [facility] Procedures Date Procedure Procedure Detail Performing Clinician Start: 07-24-[address] Anoop Rodriguez MD Work Phone: Start: 07-24-2024 Gram stain microscopy D óscar Rodriguez MD Work Phone: Start: 07-24-[address] Anoop Rodriguez MD Work Phone: Start: 07-16-[address] Anoop kim MD Work Phone: Start: 07-16-2024 MRI of brain with contrast Dr. Anoop Rodriguez MD Work Phone: Start: 06-04-2022 Radiography of ankle JOSEF SOLORIO Work Phone: H/O: section Previous c esarean delivery affecting , delivered JOSEF SOLORIO Work Phone: Comment on above: x2 Plan of Treatment Date Care Activity Detail Author Start: 07-24-2024 Bacterial culture [facility] Start: 07-24-2024 CSF Culture CSF Culture [facility] Bacteria identified in Cerebral spinal fluid by Culture [facility] Patient Education [facility] Work Phone: Patient referral [facility] Work Phone: Immunizations Immunization Date Immunization Notes Care Provider Luciana alonzo 03-19-2014 tetanus toxoid, redu kenyatta diphtheria toxoid, and acellular pertussis vaccine, adsorbed JOSEF SOLORIO Work Phone: [facility] Payers Date Payer Category Payer Self-pay [id number] 2024 Unknown [id number] Unknown [id number] [id number] Unknown [id number] Unknown [id number] 2.16.8 [id number] Unknown [id number] 2.16.8 [id number] Unknown [id number] 2.16.8 [id number] Unknown [id number] 2.16.8 [id number] Unknown [id number] 2.16.8 [id number] Unknown [id number] 2.16.8 [id number] Unknown [id number] 2.16.8 [id number] Social History Date Type Detail Facility Start: 04-25-2022 End: 08-31-2022 Tobacco smoking status NEIS Unknown if ever smoked [facility] Start: 1990 Sex Assigned At Female [facility] Start: 11-30-2023 Tobacco smoking stat us NHIS Never smoked tobacco (finding) [facility] Start: 07-20-2024 End: 08-02-2024 Sex Female (finding) [facility] Sex Female [facility] Functional Status Date Assessment Result Facility 07-24-2024 Functional status Patient Activity Ambula mello [facility] Work Phone: Mental Status Date Assessment Result Facility 07-24-2024 Cognitive function Voice/Name [facility] Work Phone: Radiology Diagnostic study note 07-24-2024 Note Date & Type Note Facility 07-24-2024 Radiology Diagnostic study note [facility] Imaging Services [address], [place] [address] Dx Lumbar Puncture w/IMG Guide MR#: [id number] Acct: [id number] Name: YOLANDA RICHMOND Rep #: [id number] : 1990 F 34 From: Glen Tamez MD PCP: Dr. Anoop Rodriguez MD Status: KATHERINE WRIGHT Study:Dx Lumbar Puncture w/IMG Guide Date of Exam: 07/24/24 Exam# [id number] Ordering Dr: Rosanne Bravo MD PROCEDURE: DX LUMBAR PUNCTURE W/IMG GUIDE 07/24/2024 REASON FOR EXAM: UNSPECIFIED PAPILLEDEMA, ENCOUNTER FOR OTHER PREPROCEDURAL EXAMIN TECHNIQUE: The procedure as well the benefits and possible complications including infection headaches were explained to the patient. Informed consent was obtained. The patient was in the prone position. The overlying skin was prepped and draped in the usual sterile fashion. Following local anesthetic application and under direct fluoroscopic guidance, a lumbar puncturewas performed at the L2-L3 level. Free flow of CSF was detected. The opening pressure was 13 mm. 12 cc of clear CSF fluid was collected and sent to the laboratory for analysis as per request. COMPARISON: None FINDINGS: Successful lumbar puncture at the L2-L3 level. RAD/Dx Lumbar Puncture w/IMG Guide IMPRESSION: Successful lumbar puncture at the L2-L3 level without any immediate complications. The patient tolerated the procedure well. Reading Location: [place] [address] CC: Dr. Aly Bravo MD; Dr. Anoop Rodriguez MD ~ Lumber Marker: Signed [facility] Evaluation note Note Date & Type Note Facility Evaluation note Diagnosis Onset Date Acute bronchitis acute Influenza A acute [facility] Work Phone: Evaluation note Note Date & Type Note Facility Evaluation note No assessment information availa ble [facility] Work Phone: Reason for referral (narrative) Note Date & Type Note Facility Reason for referral (narrative) No reason for referral information available [facility] Work Phone: Chief Complaint and Reason for Visit Chief Complaint FEVER, COUGHLT EAR P AIN RIGHT ANKLE Reason for Visit Acute bronchitis Influenza A Chief Complaint Admit Date BILAT OPTIC NERVE EDEMA July 16, 2024 4:59pm Chief Complaint Admit Date BILAT OPTIC NERVE EDEMA July 16, 2024 4:59pm Unspecified papilledema July 24, 2024 12:48pm Advance Directives No Advanced Directives Records Found Advance Directive Response Recorded Date/ Time Advance Directives No January 2:12pm Living Will No January 25, 2022 2:12pm Power of [employer] Developer No January 2:12pm Advance Directive Response Recorded Date/ Time Advance Directives No August 30, 4:33pm Living Will No August 30, 2022 4:33pm Power of [employer] Et[employer] Developer No August 30 4:33pm Advance Directive Response Recorded Date/ Time Advance Directives No August 30 023 4:33pm Summary Purpose Family History No Family History Records Found Additional Source Comments Care Teams (unrecognized sec tion and content) Team Status: Active Member Role Status Dates Dr. Anoop Rodriguez MD Primary Care Provider Active Team Status: Inactive Member Role Status Dates JOSEF Panchal Attending Provider Active Team Status: Inactive Member Role Status Dates Dr. Anoop Rodriguez MD Primary Care Provider Active Dr. Theresa Juarez MD Attending Provider, Referring P candice Active Team Status: Inactive Member Role Status Dates Dr. Anoop Rodriguez MD Primary Care Provider, Attending Provider Active Team Status: Inactive Member Role Status Dates Dr. Anoop Rodriguez MD Primary Care Provider Active Start: July 09, 2024 End: July 09, 2024 Dr. Anoop Rodriguez MD Attending Provider Active Start: July 09, 2024 End: July 09, 2024 Dr. Anoop Rodriguez MD Referring Provider Active Start: July 09, 2024 End: July 09, 2024 Team Status: Active Member Role Status Dates Dr. Anoop Rodriguez MD Primary Care Provider Active Start: July 16, 2024 Dr. Aly Bravo MD Attending Provider Active Start: July 16, 2024 Dr. Aly Bravo MD Referring Provider Active Start: July 16, 2024 Team Status: Inactive Member Role Status Dates Dr. Anoop Rodriguez MD Primary Care Provider Active Start: July 16, 2024 End: July 16, 2024 Dr. Aly Bravo MD Attending Provider Active Start: July 16, 2024 End: July 16, 2024 Dr. Aly Bravo MD Referring Provider Active Start: July 16, 2024 End: July 16, 2024 Team Status: Active Member Role Status Dates Dr. Anoop Rodriguez MD Primary Care Provider Active Start: July 24, 2024 Dr. Aly Bravo MD Attending Provider Active Start: July 24, 2024 Dr. Aly Bravo MD Referring Provider Active Start: July 24, 2024 Dr. Antonio Tamez MD Other Provider Active Start: July 24, 2024 Team Status: Inactive Member Role Status Dates Dr. Anoop Rodriguez MD Primary Care Provider Active Start: July 24, 2024 End: July 24, 2024 Dr. Aly Bravo MD Attending Provider Active Start: July 24, 2024 End: July 24, 2024 Dr. Aly Bravo MD Referring Provider Active Start: July 24, 2024 End: July 24, 2024 Dr. Antonio Tamez MD Other Provider Active Start: July 24, 2024 End: July 24, 2024 Team Status: Active Member Role/Relationship Status Dates Dr. Anoop Rodriguez MD Primary care physician Active Team Status: Inactive Member Role/Relationship Status Dates Dr. Anoop Rodriguez MD Primary care physician Active Start: February 04, 2025 End: February 04, 2025 Dr. Anoop Rodriguez MD Attending physician Active Start: February 04, 2025 End: February 04, 2025 Goals (unrecognized section and content) Goals may be documented in a n alternate sectionGoals may be documented in an alternate sectionGoals may be documented in an alternate sectionGoals may be documented in an alternate sectionGoals may be documented in an alternate sectionGoals may be documented in an alternate section INFORMATION SOURCE (unrecogn ized section and content) DATE CREATED AUTHOR 03/21/2025 [facility] FOR RECORDS PERTAINING TO PATIENTS WHO ARE OR HAVE BEEN ENROLLED IN A CHEMICAL DEPENDENCY/SUBSTANCEABUSE PROGRAM, SOME INFORMATION MAY BE OMITTED. This clinical summary was aggregated from multiple sources. Caution should be exercised in using it in the provision of clinical care. This summary normalizes information from multiple sources, and as a consequence, information in this document may materially change the coding, format and clinical context of patient data. In addition, data may be omitted in some cases. CLINICAL DECISIONS SHOULD BE BASED ON THE PRIMARY CLINICAL RECORDS. [employer] provides no warranty or guarantee of the accuracy or completeness of information in this document.
[2025-04-25 12:36] LABS: CRP 37.00 mg/L (0.0-3.0)
[2025-04-26 14:09] LABS: ANTINUCLEAR ANTIBODIES DIRECT Positive (Negative)
== END | disposition home or self-care (01) ==
LOC: MFPLAB 10:18
PROVIDERS: PCP Family Medicine; Visit Provider Family Medicine
DX: M25.439 Effusion, unspecified wrist (principal)
CPT/HCPCS: 36415; 85652; 86038; 86140

== ENCOUNTER → 2025-05-06 | Outpatient (CLI) | payer BC, SELFPAY | END | disposition home or self-care (01) | LOC: LABSPEC 05-07 08:33 | PROVIDERS: PCP Family Medicine; Referring Provider Family Medicine; Visit Provider Family Medicine | DX: R39.9 Unspecified symptoms and signs involving the genitourinary system (principal) | CPT/HCPCS: 87086; 87088 ==